=== PATIENT | female | born 1990 ===

== ENCOUNTER 2017-06-29 13:57 | Inpatient (IN) | payer OTHER ==
[2017-06-29] MEDS ORDERED: Sodium Chloride 0.9% 1,000 ML IV STA ×3 (15:16→20:24)
--- NOTE | 2017-06-29 16:20 | ED PDOC ---
Arrival/HPI - General Chief Complaint: Cough, Cold, Congestion Time Seen by Provider: 06/29/17 15:04 Historian: Patient - History of Present Illness Narrative History of Present Illness (Text): 06/29/17 16:16 27-year-old female presents today with a 2 week history of cough and a 2 day history of high fevers. Patient states she's been feeling sick for the past 2 weeks with cough. Patient states over the past 2 days she has developed high fever and has been feeling weak. Patient states that she has a body aches. States she took Tylenol for pain yesterday. Denies chest pain or shortness of breath. Patient states cough is occasionally dry and occasionally productive. Patient states she had episodes of nausea and vomiting yesterday. Denies dizziness. Denies back pain. No other complaints Time/Duration: > week (2 weeks) Symptom Onset: Gradual Symptom Course: Worsening Quality: Aching Severity Level: 4 Past Medical History - Provider Review Nursing Documentation Reviewed: Yes - Travel History Have you recently traveled outside [place] w/in the past 3 mons?: No - Infectious Disease Hx of Infectious Diseases: None - Tetanus Immunization Tetanus Immunization: Unknown - Reproductive Menopause: No - Past Medical History Past Medical History: No Previous - Psychiatric Hx Depression: No Hx Emotional Abuse: No Hx Physical Abuse: No Hx Substance Use: No - Past Surgical History Past Surgical History: No Previous - Surgical History Other/Comment: cardiac surgery 1 yrs old - Anesthesia Hx Anesthesia: Yes Hx Anesthesia Reactions: No - Suicidal Assessment Feels Threatened In Home Enviroment: No Family/Social History - Physician Review Nursing Documentation Reviewed: Yes Family/Social History: Unknown Family HX Smoking Status: Unknown If Ever Smoked Hx Alcohol Use: No Hx Substance Use: No Hx Substance Use Treatment: No Allergies/Home Meds Allergies/Adverse Reactions: Allergies No Known Allergies Allergy (Verified 06/12/14 13:16) Home Medications: Home Meds Medication Instructions Recorded Confirmed No Known Home Med [No Known Home 06/12/14 06/29/17 Med] Review of Systems - Review of Systems Constitutional: Fatigue, Fevers ENT: Sore Throat, Sinus Congestion Respiratory: Cough. absent: SOB Cardiovascular: absent: Chest Pain, Palpitations Gastrointestinal: Nausea, Vomiting. absent: Abdominal Pain, Constipation, Diarrhea Genitourinary Female: absent: Dysuria, Frequency Musculoskeletal: Other (bodyaches). absent: Arthralgias Skin: absent: Rash, Pruritis Neurological: absent: Headache, Dizziness Psychiatric: absent: Anxiety, Depression, Suicidal Ideation Physical Exam Vital Signs Reviewed: Yes Vital Signs Temp Pulse Resp BP Pulse Ox 06/29/17 21:26 70 19 88/54 L 98 06/29/17 20:12 69 19 94/63 L 97 06/29/17 18:11 68 20 92/52 L 99 06/29/17 17:24 100.6 F H 06/29/17 14:36 100.6 F H 100 H 18 90/58 L 98 Temperature: Febrile Blood Pressure: Hypotensive Pulse: Regular Respiratory Rate: Normal Appearance: Positive for: Well-Appearing, Non-Toxic, Comfortable Pain Distress: None Mental Status: Positive for: Alert and Oriented X 3 - Systems Exam Head: Present: Atraumatic Pupils: Present: PERRL Extroacular Muscles: Present: EOMI Conjunctiva: Present: Normal Ears: Present: Normal, NORMAL TM Mouth: Present: Moist Mucous Membranes, Normal Tounge. No: Drooling, Trismus Pharnyx: Present: Normal. No: ERYTHEMA, EXUDATE, TONSILS ENLARGED Nose (External): Present: Atraumatic Nose (Internal): Present: Clear Mucous Neck: Present: Normal Range of Motion, Trachea Midline. No: Meningeal Signs Respiratory/Chest: Present: Clear to Auscultation, Good Air Exchange. No: Respiratory Distress, Accessory Muscle Use Cardiovascular: Present: Tachycardic. No: Murmurs Abdomen: Present: Normal Bowel Sounds. No: Tenderness, Distention, Peritoneal Signs, Rebound, Guarding Back: Present: Normal Inspection. No: Midline Tenderness, Paraspinal Tenderness Upper Extremity: Present: Normal ROM Lower Extremity: Present: Normal ROM Neurological: Present: GCS=15, Speech Normal Skin: Present: Warm, Dry, Normal Color. No: Rashes Psychiatric: Present: Alert, Oriented x 3 Medical Decision Making ED Course and Treatment: 06/29/17 16:19 27-year-old female with two-week history of cough and flulike symptoms 2 days Febrile in the emergency room, slightly hypotensive; feeling fatigued. Patient given 1 L normal saline IV bolus Patient given Zofran for nausea Tylenol for pain/fever Chest x-ray: right upper lobe nodular densities, likely granulomas, Biapical pleural thickening. No focal consolidation Rapid flu:negative pts son with + flu test today. will start patient on tamiflu. Patient reassessment: pt still c/o generalized weakness; dry cough noted. pt remains hypotensive; 2L NS ordered. pt reassessment: pt with continued hypotension; c/o weakness. 3rd L NS iv bolus ordered. CBC; wnl CMP; k; 3.3 trop; wnl 40meq potassium given PO ekg; normal sinus rhythm at [address] depressions in 3 and aVF and T- wave inversions in V2 V3 and V4 After third liter of fluid patient still remains hypotensive with a blood pressure of 88/54. All results discussed in depth with the patient. Case was discussed in depth with Dr. Caldwell and medical director occupational health. We will admit the patient observational status for hypotension with abnormal EKG all aspects of this case were discussed the attending of record. Impression: Hypotension, abnormal EKG Admit observational status to telemetry - Lab Interpretations Lab Results: 06/29/17 21:50 06/29/17 21:50 Lab Results 06/29/17 21:50: pO2 71 H, VBG pH 7.33, VBG pCO2 41.0, VBG HCO3 21.6, VBG Total CO2 22.9, VBG O2 Sat (Calc) 97.0 H, VBG Base Excess -4.1 L, VBG Potassium 3.2 L , Sodium 138.0, Chloride 114.0 H, Glucose 79, Lactate 0.6 L, FiO2 21.0, Venous Blood Potassium 3.2 L 06/29/17 21:50: WBC 3.9 L, RBC 3.49 L, Hgb 10.6 L, Hct 32.6 L, MCV 93.4, MCH 30.4, MCHC 32.5, RDW 14.3, Plt Count 140, MPV 9.6, Gran % 57.5, Lymph % (Auto) 32.8, Turner % (Auto) 9.2 H, Eos % (Auto) 0.5 L, Baso % (Auto) 0.0, Gran # 2.24, Lymph # (Auto) 1.3, Turner # (Auto) 0.4, Eos # (Auto) 0.0, Baso # (Auto) 0.00 06/29/17 21:50: Sodium 136, Chloride 108 H, Potassium 3.3 L, Carbon Dioxide 22, Anion Gap 9 L, BUN 13, Creatinine 0.6 L, Est GFR ( Amer) > 60, Est GFR ( Non-Af Amer) > 60, Random Glucose 77, Calcium 8.2 L, Total Bilirubin 0.4, AST 17 , ALT 25, Alkaline Phosphatase 68, Lactate Dehydrogenase 317 L, Total Creatine Kinase 81, Troponin I < 0.01, Total Protein 5.9, Albumin 3.1, Globulin 2.8, Albumin/Globulin Ratio 1.1, Lipase 36 06/29/17 17:15: Influenza Typ A,B (EIA) Negative for flu a/b - RAD Interpretation Radiology Orders: 06/29/17 16:25 CHEST TWO VIEWS (PA/LAT) [RAD] Stat - Medication Orders Current Medication Orders: Acetaminophen (Tylenol 325mg Tab) 650 mg PO Q6H PRN PRN Reason: Fever >100.4 F Guaifenesin (Robitussin) 100 mg PO Q4H PRN PRN Reason: Cough Sodium Chloride (Sodium Chloride 0.9%) 1,000 mls @ 999 mls/hr IV .Q1H1M MOLLY Ceftriaxone Sodium (Rocephin 2 Gm Ivpb) 2 gm in 100 mls @ 100 mls/hr IVPB DAILY MOLLY PRN Reason: Protocol Azithromycin (Zithromax 500mg In Ns) 500 mg in 250 mls @ 167 mls/hr IVPB DAILY MOLLY PRN Reason: Protocol Sodium Chloride (Sodium Chloride 0.9%) 1,000 mls @ 80 mls/hr IV .[id number] MOLLY Levalbuterol HCl (Xopenex) 0.63 mg IH Q6H PRN PRN Reason: Shortness of Breath Pantoprazole Sodium (Protonix Ec Tab) 40 mg PO 0600 [facility] Discontinued Medications Acetaminophen (Tylenol 325mg Tab) 975 mg PO STAT STA Stop: 06/29/17 15:06 Last Admin: 06/29/17 17:24 Dose: 975 mg MAR Pain/Vitals Document 06/29/17 17:24 [email or web address] (Rec: 06/29/17 17:24 [email or web address] [id number]) Vitals Temperature (97.6 F-99.6 F) 100.6 F Temperature Source Oral Azithromycin (Zithromax) 500 mg PO STAT STA PRN Reason: Protocol Stop: 06/29/17 17:59 Last Admin: 06/29/17 18:10 Dose: 500 mg Sodium Chloride (Sodium Chloride 0.9%) 1,000 mls @ 999 mls/hr IV .Q1H1M STA Stop: 06/29/17 16:16 Last Admin: 06/29/17 17:24 Dose: 999 mls/hr eMAR Start Stop Document 06/29/17 17:24 [email or web address] (Rec: 06/29/17 17:[id number]- [id number]) Intravenous Solution Start Date 06/29/17 Start Time 17:24 End Date 06/29/17 Sodium Chloride (Sodium Chloride 0.9%) 1,000 mls @ 999 mls/hr IV .Q1H1M STA Stop: 06/29/17 19:42 Last Admin: 06/29/17 18:53 Dose: 999 mls/hr eMAR Start Stop Document 06/29/17 18:53 [email or web address] (Rec: 06/29/17 18:[id number]- [id number]) Intravenous Solution Start Date 06/29/17 Start Time 18:54 End Date 06/29/17 Sodium Chloride (Sodium Chloride 0.9%) 1,000 mls @ 999 mls/hr IV .Q1H1M STA Stop: 06/29/17 21:24 Last Admin: 06/29/17 20:57 Dose: 999 mls/hr eMAR Start Stop Document 06/29/17 20:57 [email or web address] (Rec: 06/29/17 20:[email or web address]- [id number]) Intravenous Solution Start Date 06/29/17 Start Time 20:57 End Date 06/29/17 Ondansetron HCl (Zofran Inj) 4 mg IVP STAT STA Stop: 06/29/17 15:17 Last Admin: 06/29/17 17:24 Dose: 4 mg IVP Administration Document 06/29/17 17:24 [email or web address] (Rec: 06/29/17 17:[email or web address]- [id number]) Charges for Administration # of IVP Administrations 1 Oseltamivir Phosphate (Tamiflu Cap) 75 mg PO STAT STA PRN Reason: Protocol Stop: 06/29/17 17:52 Last Admin: 06/29/17 18:09 Dose: 75 mg Potassium Chloride (K-Dur 20 Meq Er Tab) 40 meq PO STAT STA Stop: 06/29/17 22:26 Last Admin: 06/29/17 23:01 Dose: 40 meq Disposition/Present on Arrival - Present on Arrival Any Indicators Present on Arrival: No History of DVT/PE: No History of Uncontrolled Diabetes: No Urinary Catheter: No History of Decub. Ulcer: No History Surgical Site Infection Following: None - Disposition Have Diagnosis and Disposition been Completed?: Yes Diagnosis: Hypotension, Abnormal EKG Disposition: HOSPITALIZED Disposition Time: 23:00 Patient Plan: Observation, Telemetry Patient Problems: Current Active Problems Problem Status Onset Abnormal EKG Acute Hypotension Acute Condition: FAIR
--- NOTE | 2017-06-29 17:50 | RAD ---
HISTORY: cough/fever COMPARISON: None available. TECHNIQUE: Chest PA and lateral FINDINGS: LUNGS: Tiny right upper lobe nodular densities, likely granulomas. Biapical pleural thickening. No focal consolidation. Please note that chest x-ray has limited sensitivity for the detection of pulmonary masses. PLEURA: No significant pleural effusion identified. No definite pneumothorax . CARDIOVASCULAR: The cardiomediastinal silhouette appears within normal limits of size. OSSEOUS STRUCTURES: No acute osseous abnormality identified. VISUALIZED UPPER ABDOMEN: Unremarkable. OTHER FINDINGS: None. IMPRESSION: Tiny right upper lobe nodular densities, likely granulomas. Biapical pleural thickening.
[2017-06-29 22:05] LABS: EOS % 0.5 % (1.5-5.0); GRAN # 2.24 (1.4-6.5); GRAN % 57.5 % (50.0-68.0); HEMOGLOBIN 10.6 g/dL (12.0-16.0); LYMPH # 1.3 (1.2-3.4); LYMPH % 32.8 % (22.0-35.0); MEAN CELL VOLUME 93.4 fl (80.0-105.0); MEAN CORPUSCULAR HEMOGLOBIN 30.4 pg (25.0-35.0); MEAN CORPUSCULAR HGB CONC 32.5 g/dl (31.0-37.0); MEAN PLATELET VOLUME 9.6 fl (7.0-11.0); MONO # 0.4 (0.1-0.6); MONO % 9.2 % (1.0-6.0); RBC 3.49 10^6/uL (3.5-6.1); RED CELL DISTRIBUTION WIDTH 14.3 % (11.5-14.5); VENOUS BLOOD GAS BASE EXCESS -4.1 mmol/L (0.0-2.0); VENOUS BLOOD GAS PO2 71 mm/Hg (30-55); VENOUS BLOOD PH 7.33 (7.32-7.43); WHITE BLOOD COUNT 3.9 10^3/ul (4.5-11.0)
[2017-06-29 22:24] LABS: ALB/GLOB RATIO 1.1 (1.1-1.8); ALBUMIN 3.1 g/dL (3.0-4.8); ALT/SGPT 25 U/L (7-56); AST/SGOT 17 U/L (14-36); BLOOD UREA NITROGEN 13 mg/dL (7-21); CALCIUM 8.2 mg/dL (8.4-10.5); GFR AFRICAN-AMERICAN > 60; GFR NON-AFRICAN AMERICAN > 60; LIPASE 36 U/L (23-300)
[2017-06-29] MEDS ORDERED: Potassium Chloride 20 mEq ER Tab PO STA (22:25)
[2017-06-29 22:35] LABS: TROPONIN I < 0.01 ng/mL
--- NOTE | 2017-06-29 23:44 | CP.PCM.HP ---
<Sergio Barnard - Last Filed: 06/29/17 23:38> History of Present Illness - History of Present Illness History of Present Illness: 27 year old female with no significant past medical history presents with 2 week history of cough. Patient states her cough started two weeks ago and is productive with yellow sputum. She states she was around her and son who had similar symptoms. Yesterday they patient felt subjective fevers and also had two episodes on on bloody non bilious vomiting. Along with the cough she has also had headaches and sore throat, but no nasal congestion or runny nose. In addition, she states she had two episodes of diarrhea while waiting in the ED. She denies any chest pain, shortness of breath, nausea, abdominal pain, chills, body aches or any other complaints at this time. PMH: none significant PSH: cardiac surgery at age 1, unknown procedure Allergies: none Social: denies tobacco, alcohol, or illicit drug use Medications: none Family Hx: none significant Present on Admission - Present on Admission Any Indicators Present on Admission: No Review of Systems - Constitutional Constitutional: Fever, Headache. absent: Chills - EENT Eyes: absent: Change in Vision Ears: absent: Ear Pain Nose/Mouth/Throat: Sore Throat. absent: Nasal Congestion, Nasal Discharge - Cardiovascular Cardiovascular: absent: Chest Pain, Dyspnea - Respiratory Respiratory: Cough, Chest Congestion, Excessive Mucous Production. absent: Dyspnea - Gastrointestinal Gastrointestinal: Diarrhea, Vomiting. absent: Abdominal Pain, Nausea - Genitourinary Genitourinary: absent: Difficulty Urinating - Musculoskeletal Musculoskeletal: absent: Arthralgias - Neurological Neurological: absent: Dizziness, Headaches Past Patient History - Infectious Disease Hx of Infectious Diseases: None - Tetanus Immunizations Tetanus Immunization: Unknown - Past Social History Smoking Status: Unknown If Ever Smoked - PSYCHIATRIC Hx Depression: No Hx Emotional Abuse: No Hx Physical Abuse: No Hx Substance Use: No - SURGICAL HISTORY Other/Comment: cardiac surgery 1 yrs old - ANESTHESIA Hx Anesthesia: Yes Hx Anesthesia Reactions: No Meds Allergies/Adverse Reactions: Allergies Allergy/AdvReac Type Severity Reaction Status Date / Time No Known Allergies Allergy Verified 06/12/14 13:16 Physical Exam - Constitutional Appears: Non-toxic, No Acute Distress - Head Exam Head Exam: ATRAUMATIC, NORMAL INSPECTION, NORMOCEPHALIC - Eye Exam Eye Exam: EOMI, Normal appearance, PERRL - ENT Exam ENT Exam: Mucous Membranes Moist - Neck Exam Neck exam: Negative for: Lymphadenopathy, Tenderness - Respiratory Exam Respiratory Exam: NORMAL BREATHING PATTERN Additional comments: inspiratory wheezing in right upper lung - Cardiovascular Exam Cardiovascular Exam: REGULAR RHYTHM, +S1, +S2 - GI/Abdominal Exam GI & Abdominal Exam: Soft. absent: Tenderness - Extremities Exam Extremities exam: Positive for: pedal pulses present. Negative for: pedal edema - Neurological Exam Neurological exam: Alert, CN II-XII Intact, Oriented x3 Results - Vital Signs Recent Vital Signs: Last Vital Signs Temp 100.6 F H 06/29/17 17:24 Pulse 70 06/29/17 21:26 Resp 19 06/29/17 21:26 BP 88/54 L 06/29/17 21:26 Pulse Ox 98 06/29/17 21:26 - Labs Result Diagrams: 06/29/17 21:50 06/29/17 21:50 Labs: Laboratory Results - last 24 hr 06/29/17 06/29/17 06/29/17 17:15 21:50 21:50 WBC 3.9 L RBC 3.49 L Hgb 10.6 L Hct 32.6 L MCV 93.4 MCH 30.4 MCHC 32.5 RDW 14.3 Plt Count 140 MPV 9.6 Gran % 57.5 Lymph % (Auto) 32.8 Kimball % (Auto) 9.2 H Eos % (Auto) 0.5 L Baso % (Auto) 0.0 Gran # 2.24 Lymph # (Auto) 1.3 Kimball # (Auto) 0.4 Eos # (Auto) 0.0 Baso # (Auto) 0.00 pO2 VBG pH VBG pCO2 VBG HCO3 VBG Total CO2 VBG O2 Sat (Calc) VBG Base Excess VBG Potassium Sodium 136 Chloride 108 H Glucose Lactate FiO2 Potassium 3.3 L Carbon Dioxide 22 Anion Gap 9 L BUN 13 Creatinine 0.6 L Est GFR ( Amer) > 60 Est GFR (Non-Af Amer) > 60 Random Glucose 77 Calcium 8.2 L Total Bilirubin 0.4 AST 17 ALT 25 Alkaline Phosphatase 68 Lactate Dehydrogenase 317 L Total Creatine Kinase 81 Troponin I < 0.01 Total Protein 5.9 Albumin 3.1 Globulin 2.8 Albumin/Globulin Ratio 1.1 Lipase 36 Venous Blood Potassium Influenza Typ A,B (EIA) Negative for flu a/b 06/29/17 21:50 WBC RBC Hgb Hct MCV MCH MCHC RDW Plt Count MPV Gran % Lymph % (Auto) Kimball % (Auto) Eos % (Auto) Baso % (Auto) Gran # Lymph # (Auto) Kimball # (Auto) Eos # (Auto) Baso # (Auto) pO2 71 H VBG pH 7.33 VBG pCO2 41.0 VBG HCO3 21.6 VBG Total CO2 22.9 VBG O2 Sat (Calc) 97.0 H VBG Base Excess -4.1 L VBG Potassium 3.2 L Sodium 138.0 Chloride 114.0 H Glucose 79 Lactate 0.6 L FiO2 21.0 Potassium Carbon Dioxide Anion Gap BUN Creatinine Est GFR ( Amer) Est GFR (Non-Af Amer) Random Glucose Calcium Total Bilirubin AST ALT Alkaline Phosphatase Lactate Dehydrogenase Total Creatine Kinase Troponin I Total Protein Albumin Globulin Albumin/Globulin Ratio Lipase Venous Blood Potassium 3.2 L Influenza Typ A,B (EIA) Assessment & Plan - Assessment and Plan (Free Text) Assessment: 27 year old female with no significant past medical history presents with 2 week history of cough. Patient states her cough started two weeks ago and is productive with yellow sputum. Plan: 1. Cough with Fever -Chest xray: right upper lobe nodular densities, likely granulomas, Biapical pleural thickening. No focal consolidation -EKG, pending official read, T wave inversions -Rocephin -Azithromycin -Tylenol -Robitussin -xopenex -blood, urine, sputum cultures pending -rapid flu negative 2. Abnormal EKG with T wave inversions -EKG, pending official read, T wave inversions -Cardiology consulted, Becker, follow recs -Troponin negative initial, follow up x2 -repeat EKG in AM 3. Hypotension -88/54 BP -4 L NS given -NS @80 -continue to monitor 4. Hypokalemia -repleted -monitor via daily CBC 5. Diarrhea -Fluids -C diff toxin pending GI/DVT -protonix -SCD <Teetee Caldwell - Last Filed: 06/30/17 00:12> Results - Vital Signs Recent Vital Signs: Last Vital Signs Temp 100.6 F H 06/29/17 17:24 Pulse 70 06/29/17 21:26 Resp 19 01/31/18 21:26 BP 88/54 L 06/29/17 21:26 Pulse Ox 98 06/29/17 21:26 - Labs Result Diagrams: 06/29/17 21:50 06/29/17 21:50 Attending/Attestation - Attestation I have personally seen and examined this patient.: Yes I have fully participated in the care of the patient.: Yes I have reviewed all pertinent clinical information: Yes Notes (Text): 06/30/17 00:12 Patient was seen when she was in bed # 13 in the ER. Agree with history, physical examination,assessment and plan.
[2017-06-29] MEDS ORDERED: Levalbuterol 0.63 MG/3 ML Inhal Soln UD IH PRN (23:51)
[2017-06-30] MEDS: Sodium Chloride 0.9% 1,000 ML IV SCH ×4 (01:50→13:00)
[2017-06-30] MEDS: guaiFENesin 100 mg/5 ml Syrup UD PO PRN ×2 (02:02→23:14)
[2017-06-30 06:57] LABS: BASO # 0.02 K/mm3 (0.0-2.0); BASO % 0.5 % (0.0-3.0); EOS # 0.1 (0.0-0.7); GRAN # 2.18 (1.4-6.5); GRAN % 54.7 % (50.0-68.0); HEMOGLOBIN 10.8 g/dL (12.0-16.0); LYMPH # 1.3 (1.2-3.4); LYMPH % 33.3 % (22.0-35.0); MEAN CELL VOLUME 94.3 fl (80.0-105.0); MEAN CORPUSCULAR HEMOGLOBIN 29.3 pg (25.0-35.0); MEAN CORPUSCULAR HGB CONC 31.1 g/dl (31.0-37.0); MEAN PLATELET VOLUME 9.9 fl (7.0-11.0); MONO # 0.4 (0.1-0.6); MONO % 9.5 % (1.0-6.0); RBC 3.68 10^6/uL (3.5-6.1); RED CELL DISTRIBUTION WIDTH 14.4 % (11.5-14.5)
[2017-06-30] MEDS: Pantoprazole 40 mg EC Tab PO SCH (08:55)
[2017-06-30] MEDS: Azithromycin 500MG/NS 250ml 500 MG/250 ML BAG IVPB SCH (09:08)
[2017-06-30] MEDS ORDERED: cefTRIAXone 2 GM IN NS 2 GM/100 ML BAG IVPB SCH (10:00)
[2017-06-30 10:08] LABS: ALB/GLOB RATIO 1.1 (1.1-1.8); ALBUMIN 3.2 g/dL (3.0-4.8); ALT/SGPT 28 U/L (7-56); AST/SGOT 22 U/L (14-36); BLOOD UREA NITROGEN 10 mg/dL (7-21); CALCIUM 8.9 mg/dL (8.4-10.5); GFR AFRICAN-AMERICAN > 60; GFR NON-AFRICAN AMERICAN > 60
--- NOTE | 2017-06-30 10:31 | CT ---
PROCEDURE: CT Chest without contrast HISTORY: evaluate nodule COMPARISON: Chest x-ray 06/29/2017 TECHNIQUE: Contiguous axial images were obtained through the chest without intravenous contrast enhancement. Sagittal and coronal reconstructions were performed. Radiation dose (DLP): 197 mGy-cm. This CT exam was performed using one or more of the following dose reduction techniques: Automated exposure control, adjustment of the mA and/or kV according to patient size, and/or use of iterative reconstruction technique. FINDINGS: LUNGS: There is a small calcified granuloma in the right lung apex. No significant pulmonary nodule or mass. MEDIASTINUM: Unremarkable thoracic aorta. No aneurysm. Normal sized heart. Main pulmonary artery unremarkable. No vascular congestion. No lymphadenopathy. PLEURA: No pleural fluid. No pneumothorax. BONES: No fracture. No destructive lesion. UPPER ABDOMEN: Grossly unremarkable. OTHER FINDINGS: None. IMPRESSION: Small calcified granulomas right upper lobe. No significant pulmonary mass or nodule
--- NOTE | 2017-06-30 12:01 | CP.PCM.PN ---
<Jorge Alberto Hsieh - Last Filed: 06/30/17 19:45> Subjective - Date & Time of Evaluation Date of Evaluation: 06/30/17 Time of Evaluation: 10:55 - Subjective Subjective: Jorge Alberto Hsieh PGY1 IM Progress Note Patient was seen and examined at bedside in ED. Patient currently complaining of cough that is not productive, but denies any fevers/chills, chest pain, shortness of breath. She states that her and child were both diagnosed with flu. Patient states that she had a "hole in her heart" that was closed when she was young. Objective - Vital Signs/Intake and Output Vital Signs (last 24 hours): Temp Pulse Resp BP Pulse Ox 97.8 F 52 L 18 96/67 L 98 06/30/17 02:04 06/30/17 07:00 06/30/17 07:00 06/30/17 07:00 06/30/17 07:00 - Medications Medications: Current Medications Acetaminophen (Tylenol 325mg Tab) 650 mg PO Q6H PRN PRN Reason: Fever >100.4 F Guaifenesin (Robitussin) 100 mg PO Q4H PRN PRN Reason: Cough Last Admin: 06/30/17 02:02 Dose: 100 mg Sodium Chloride (Sodium Chloride 0.9%) 1,000 mls @ 999 mls/hr IV .Q1H1M [facility] Last Admin: 06/30/17 03:19 Dose: 999 mls/hr Ceftriaxone Sodium (Rocephin 2 Gm Ivpb) 2 gm in 100 mls @ 100 mls/hr IVPB DAILY [facility] PRN Reason: Protocol Last Admin: 06/30/17 10:57 Dose: 100 mls/hr Azithromycin (Zithromax 500mg In Ns) 500 mg in 250 mls @ 167 mls/hr IVPB DAILY [facility] PRN Reason: Protocol Last Admin: 06/30/17 09:08 Dose: 167 mls/hr Sodium Chloride (Sodium Chloride 0.9%) 1,000 mls @ 80 mls/hr IV .[id number] [facility] Last Admin: 06/30/17 01:50 Dose: Not Given Levalbuterol HCl (Xopenex) 0.63 mg IH Q6H PRN PRN Reason: Shortness of Breath Ondansetron HCl (Zofran Inj) 4 mg IVP Q4H PRN PRN Reason: Nausea/Vomiting Oseltamivir Phosphate (Tamiflu Cap) 75 mg PO BID [facility] PRN Reason: Protocol Stop: 07/05/17 11:53 Pantoprazole Sodium (Protonix Ec Tab) 40 mg PO 0600 [facility] Last Admin: 06/30/17 08:55 Dose: 40 mg - Labs Labs: 06/30/17 06:37 06/30/17 09:55 - Constitutional Appears: Well, Non-toxic, No Acute Distress - Head Exam Head Exam: NORMAL INSPECTION - Eye Exam Eye Exam: EOMI, Normal appearance, PERRL - ENT Exam ENT Exam: Mucous Membranes Moist - Neck Exam Neck Exam: Normal Inspection - Respiratory Exam Respiratory Exam: Clear to Ausculation Bilateral, NORMAL BREATHING PATTERN. absent: Rales, Rhonchi, Wheezes - Cardiovascular Exam Cardiovascular Exam: RRR, +S1, +S2 - GI/Abdominal Exam GI & Abdominal Exam: Soft, Normal Bowel Sounds. absent: Distended, Tenderness - Extremities Exam Extremities Exam: Normal Inspection - Back Exam Back Exam: NORMAL INSPECTION - Neurological Exam Neurological Exam: Alert, Awake, Oriented x3 - Psychiatric Exam Psychiatric exam: Normal Affect, Normal Mood - Skin Skin Exam: Normal Color, Warm Assessment and Plan - Assessment and Plan (Free Text) Assessment: 27 year old female with no significant past medical history presents with 2 week history of cough. Patient states her cough started two weeks ago and is productive with yellow sputum and associated with vomiting, sore throat and headache. Plan: 1. Cough with Fever - Chest xray: right upper lobe nodular densities, likely granulomas, Biapical pleural thickening. No focal consolidation - HRCT chest showed small calcified granulomas in right upper lobe - EKG, pending official read, T wave inversions - Azithromycin to cover for CAP despite low pneumonia severity - Tamiflu started given +hx in family despite negative flu test - Quantiferon gold ordered to r/o TB - Tylenol prn fevers - Robitussin prn cough - xopenex - blood, urine, sputum cultures pending 2. Abnormal EKG with T wave inversions - EKG, pending official read, T wave inversions - Cardiology consulted, recs appreciated - Troponin I negative x3 - repeat EKGs all consisent 3. Hypotension, similar to old readings - NS @80 - continue to monitor 4. Hypokalemia - repleted 5. Diarrhea - Fluids - C diff toxin pending 6. GI/DVT - protonix for GI ppx - SCDs for DVT ppx Patient was seen, examined and discussed with attending, Dr Kiersten Hsieh PGY1 Pager # [phone] <Isak Burch B - Last Filed: 07/02/17 16:37> Objective - Vital Signs/Intake and Output Vital Signs (last 24 hours): Temp Pulse Resp BP Pulse Ox 98.0 F 61 18 86/52 L 99 07/02/17 12:00 07/02/17 12:00 07/02/17 12:00 07/02/17 12:00 07/02/17 06:00 Intake and Output: 07/02/17 07/02/17 06:59 18:59 Intake Total 720 120 Balance 720 120 - Medications Medications: Current Medications Acetaminophen (Tylenol 325mg Tab) 650 mg PO Q6H PRN PRN Reason: Fever >100.4 F Guaifenesin (Robitussin) 100 mg PO Q4H PRN PRN Reason: Cough Last Admin: 06/30/17 23:14 Dose: 100 mg Azithromycin (Zithromax 500mg In Ns) 500 mg in 250 mls @ 167 mls/hr IVPB DAILY [facility] PRN Reason: Protocol Last Admin: 07/02/17 09:05 Dose: 167 mls/hr Sodium Chloride (Sodium Chloride 0.9%) 1,000 mls @ 125 mls/hr IV .Q8H [facility] Last Admin: 07/02/17 04:16 Dose: 125 mls/hr Levalbuterol HCl (Xopenex) 0.63 mg IH Q6H PRN PRN Reason: Shortness of Breath Ondansetron HCl (Zofran Inj) 4 mg IVP Q4H PRN PRN Reason: Nausea/Vomiting Oseltamivir Phosphate (Tamiflu Cap) 75 mg PO Q12 [facility] PRN Reason: Protocol Last Admin: 07/02/17 09:05 Dose: 75 mg Pantoprazole Sodium (Protonix Ec Tab) 40 mg PO 0600 [facility] Last Admin: 07/02/17 05:29 Dose: 40 mg - Labs Labs: 07/02/17 07:30 07/02/17 07:30 Attending/Attestation - Attestation I have personally seen and examined this patient.: Yes I have fully participated in the care of the patient.: Yes I have reviewed all pertinent clinical information, including history, physical exam and plan: Yes Notes (Text): I have seen and examined the patient at bedside. 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 Patients child and was diagnosed with flu recently. She was started on rocephin, zithro and tamiflu. HRCT scan was obtained for further evaluation which indicated small calcified granulomas in RUL. Patient did not travel recently outside of [place]. No known TB contacts. No incarceration. Will order quantiferon and sputum sample collection to rule out TB. Air droplet precuations started. Will consult ID. Cardio consult appreciated. Echo result pending. BP is on the lower side however patient denies any complaints. It looks like this BP is normal for her. Upon discharge patiwnt will follow up in [facility] clinic. Dr Isak Burch
--- NOTE | 2017-06-30 16:09 | CARD ---
APPROVED REPORT EKG Measurement Heart [id number] CT 160P17 [id number] <Conclusion> Normal sinus rhythm Abnormal QRS-T angle, consider primary T wave abnormality Abnormal ECG
--- NOTE | 2017-06-30 16:12 | CARD ---
APPROVED REPORT EKG Measurement Heart [id number] MD [id number] <Conclusion> Normal sinus rhythm Nonspecific T wave abnormality Prolonged QT Abnormal ECG
--- NOTE | 2017-06-30 16:15 | CARD ---
APPROVED REPORT EKG Measurement Heart [id number] DE 160P54 [id number] <Conclusion> Normal sinus rhythm T wave abnormality, consider inferior ischemia Prolonged QT Abnormal ECG
[2017-06-30 19:31] VITALS: BMI 24.7
[2017-06-30] MEDS ORDERED: Influenza Vaccine 60 mcg/0.5 mL SYR (4YR UP) IM ONE (19:31)
[2017-06-30] MEDS ORDERED: Pneumococcal 23-Valent Vaccine IM ONE (19:31)
--- NOTE | 2017-06-30 22:07 | CON ---
DATE: 06/30/2017 CARDIOLOGY CONSULTATION HISTORY OF PRESENT ILLNESS: The patient is a 27-year-old woman who presents with several days of upper respiratory infection. She was found to be relatively hypotensive. She received IV fluids. The patient's past medical history is notable for history of cardiac surgery for "hole in her heart" at the age of 1 in [place]. She denies shortness of breath. Denies chest pain. She is on no medications at home. Does not smoke. REVIEW OF SYSTEMS: A 14-point review of systems is reviewed in detail. No cardiac symptomatology noted. PHYSICAL EXAMINATION: VITAL SIGNS: Blood pressure 100/60. NECK: Negative JVD. LUNGS: Without rales. HEART: S1 and S2. EXTREMITIES: Without edema. EKG shows normal sinus rhythm with ST-T flattening. LABORATORY DATA: Reveal BUN and creatinine unremarkable. Troponin is negative x1. Hemoglobin is 10.8. IMPRESSION: 1. Upper respiratory infection. 2. Dehydration. 3. Mild hypotension which is now resolved. 4. Anemia. 5. History of probable atrial septal defect versus ventricular septal defect. Given these findings, we will continue IV hydration. We will obtain an echocardiogram to evaluate her history of heart surgery. Ventura Becker MD
--- NOTE | 2017-06-30 22:56 | CARD ---
APPROVED REPORT EXAM: Two-dimensional and M-mode echocardiogram with Doppler and color Doppler. INDICATION HX OF ASD VS VSD 2D DIMENSIONS Left Atrium (2D)3.8 (1.6-4.0cm)IVSd0.8 (0.7-1.1cm) LVDd4.5 (3.9-5.9cm)PWd0.7 (0.7-1.1cm) LVDs3.1 (2.5-4.0cm)FS (%) 32.1 % LVEF (%)60.4 (>50%) M-Mode DIMENSIONS Aortic Root2.60 (2.2-3.7cm)Aortic Cusp Exc.1.70 (1.5-2.0cm) Aortic Valve AoV Peak Dgrebqqo010.0cm/Shelley Peak GR.14mmHg Mitral Valve MV E Yhrgkqum495.0cm/sMV A Yqveakep38.8cm/sE/A ratio1.9 TDI E/Lateral E'0.0E/Medial E'0.0 Pulmonary Valve PV Peak Lusqduiq739.0cm/sPV Peak Grad.7mmHg Tricuspid Valve TR Peak Nhvgbnaq269sg/sRAP BSGJYANA81cfQbWH Peak Gr.29mmHg NOSY38bwCm LEFT VENTRICLE The left ventricle is normal size. There is normal left ventricular wall thickness. The left ventricular function is normal. The left ventricular ejection fraction is within the normal range. There is normal LV segmental wall motion. The left ventricular diastolic function is normal. RIGHT VENTRICLE The right ventricle is normal size. There is normal right ventricular wall thickness. The right ventricular systolic function is normal. ATRIA The left atrium size is normal. The right atrium size is normal. AORTIC VALVE The aortic valve is normal in structure. No aortic regurgitation is present. There is no aortic valvular stenosis. MITRAL VALVE The mitral valve is normal in structure. There is no mitral valve regurgitation noted. TRICUSPID VALVE There is mild pulmonary hypertension. GREAT VESSELS The aortic root is normal in size. <Conclusion> The left ventricle is normal size. There is normal left ventricular wall thickness. The left ventricular function is normal. The left ventricular ejection fraction is within the normal range. There is normal LV segmental wall motion. The left ventricular diastolic function is normal. There is mild pulmonary hypertension. Consider Right Ventricular Septal Patch for a VSD, No flow accross the IVS, a patch vegitation can not be ruled out A small PFO can not be ruled out, Consider BHAVNA
[2017-07-01 02:16] LABS: ALB/GLOB RATIO 1.1 (1.1-1.8); ALBUMIN 3.4 g/dL (3.0-4.8); ALT/SGPT 19 U/L (7-56); AST/SGOT 25 U/L (14-36); BLOOD UREA NITROGEN 11 mg/dL (7-21); CALCIUM 8.8 mg/dL (8.4-10.5); GFR AFRICAN-AMERICAN > 60; GFR NON-AFRICAN AMERICAN > 60
[2017-07-01] MEDS: Sodium Chloride 0.9% 1,000 ML IV SCH ×3 (06:51→20:24)
[2017-07-01] MEDS: Pantoprazole 40 mg EC Tab PO SCH (07:04)
[2017-07-01 07:16] LABS: EOS # 0.2 (0.0-0.7); EOS % 4.4 % (1.5-5.0); GRAN # 1.55 (1.4-6.5); GRAN % 37.9 % (50.0-68.0); HEMOGLOBIN 11.2 g/dL (12.0-16.0); LYMPH # 1.9 (1.2-3.4); LYMPH % 46.9 % (22.0-35.0); MEAN CELL VOLUME 93.4 fl (80.0-105.0); MEAN CORPUSCULAR HEMOGLOBIN 29.7 pg (25.0-35.0); MEAN CORPUSCULAR HGB CONC 31.8 g/dl (31.0-37.0); MEAN PLATELET VOLUME 10.1 fl (7.0-11.0); MONO # 0.4 (0.1-0.6); MONO % 10.8 % (1.0-6.0); RBC 3.77 10^6/uL (3.5-6.1); RED CELL DISTRIBUTION WIDTH 14.3 % (11.5-14.5); WHITE BLOOD COUNT 4.1 10^3/ul (4.5-11.0)
[2017-07-01] MEDS: Azithromycin 500MG/NS 250ml 500 MG/250 ML BAG IVPB SCH (11:59)
--- NOTE | 2017-07-01 12:31 | CP.PCM.PN ---
<JoriJorge Alberto - Last Filed: 07/01/17 15:01> Subjective - Date & Time of Evaluation Date of Evaluation: 07/01/17 Time of Evaluation: 10:30 - Subjective Subjective: Jorge Alberto Hsieh PGY1 IM Progress Note Patient was seen and examined at bedside in isolation room with negative pressure. Patient is complaining of dry cough but denies fevers/chills, n/v/d/, chills, night chills, weight loss. Patient states that she lived in [place] until 2006 and has not returned for a visit since then, and has no had any visitors recently. She states that she did receive vaccine for TB when she was a young. Objective - Vital Signs/Intake and Output Vital Signs (last 24 hours): Temp Pulse Resp BP Pulse Ox 97.5 F L 60 16 92/50 L 98 07/01/17 06:00 07/01/17 06:00 07/01/17 06:00 07/01/17 06:00 07/01/17 06:00 - Medications Medications: Current Medications Acetaminophen (Tylenol 325mg Tab) 650 mg PO Q6H PRN PRN Reason: Fever >100.4 F Guaifenesin (Robitussin) 100 mg PO Q4H PRN PRN Reason: Cough Last Admin: 06/30/17 23:14 Dose: 100 mg Sodium Chloride (Sodium Chloride 0.9%) 1,000 mls @ 999 mls/hr IV .Q1H1M [facility] Last Admin: 06/30/17 03:19 Dose: 999 mls/hr Azithromycin (Zithromax 500mg In Ns) 500 mg in 250 mls @ 167 mls/hr IVPB DAILY [facility] PRN Reason: Protocol Last Admin: 07/01/17 11:59 Dose: 167 mls/hr Sodium Chloride (Sodium Chloride 0.9%) 1,000 mls @ 80 mls/hr IV .[id number] [facility] Last Admin: 07/01/17 06:51 Dose: Not Given Levalbuterol HCl (Xopenex) 0.63 mg IH Q6H PRN PRN Reason: Shortness of Breath Ondansetron HCl (Zofran Inj) 4 mg IVP Q4H PRN PRN Reason: Nausea/Vomiting Oseltamivir Phosphate (Tamiflu Cap) 75 mg PO Q12 [facility] PRN Reason: Protocol Last Admin: 07/01/17 11:58 Dose: 75 mg Pantoprazole Sodium (Protonix Ec Tab) 40 mg PO 0600 [facility] Last Admin: 07/01/17 07:04 Dose: 40 mg - Additional Findings Additional findings: - Constitutional Appears: Well, Non-toxic, No Acute Distress - Head Exam Head Exam: NORMAL INSPECTION - Eye Exam Eye Exam: EOMI, Normal appearance, PERRL - ENT Exam ENT Exam: Mucous Membranes Moist - Neck Exam Neck Exam: Normal Inspection - Respiratory Exam Respiratory Exam: Rhonchi (RUL and RLL), NORMAL BREATHING PATTERN. absent: Rales, Rhonchi, Wheezes - Cardiovascular Exam Cardiovascular Exam: RRR, +S1, +S2 - GI/Abdominal Exam GI & Abdominal Exam: Soft, Normal Bowel Sounds. absent: Distended, Tenderness - Extremities Exam Extremities Exam: Normal Inspection - Back Exam Back Exam: NORMAL INSPECTION - Neurological Exam Neurological Exam: Alert, Awake, Oriented x3 - Psychiatric Exam Psychiatric exam: Normal Affect, Normal Mood - Skin Skin Exam: Normal Color, Warm Assessment and Plan - Assessment and Plan (Free Text) Assessment: 27 year old female with no significant past medical history presents with 2 week history of cough. Patient states her cough started two weeks ago and is productive with yellow sputum and associated with vomiting, sore throat and headache. Plan: 1. Cough with Fever, treating for flu but need to r/o TB - Chest xray: right upper lobe nodular densities, likely granulomas, Biapical pleural thickening. No focal consolidation - HRCT chest showed small calcified granulomas in right upper lobe - EKG, pending official read, T wave inversions - Azithromycin to cover for CAP despite low pneumonia severity - Tamiflu started given +hx in family despite negative flu test - Quantiferon gold ordered to r/o TB - AFB sputum cultures q8h x3 ordered - Tylenol prn fevers - Robitussin prn cough - xopenex - blood, urine, sputum cultures pending - ID consulted, rec 5d Tamiflu course and zithromax, while following up Quantiferon test, histoplasma Ag 2. Abnormal EKG with T wave inversions - EKG, pending official read, T wave inversions - Echo shows EF 60%, normal wall motion, mild pulm hypertension, VSD, possible PFO - Cardiology consulted, recs appreciated - Troponin I negative x3 - repeat EKGs all consistent 3. Hypotension, similar to old readings - NS @80 - continue to monitor 4. Diarrhea - Fluids - C diff toxin pending 5. GI/DVT - protonix for GI ppx - SCDs for DVT ppx Patient was seen, examined and discussed with attending, Dr Kiersten Hsieh PGY1 Pager # [phone] <Isak Burch B - Last Filed: 07/02/17 16:45> Objective - Vital Signs/Intake and Output Vital Signs (last 24 hours): Temp Pulse Resp BP Pulse Ox 98.0 F 61 18 86/52 L 99 07/02/17 12:00 07/02/17 12:00 07/02/17 12:00 07/02/17 12:00 07/02/17 06:00 Intake and Output: 07/02/17 07/02/17 06:59 18:59 Intake Total 720 120 Balance 720 120 - Medications Medications: Current Medications Acetaminophen (Tylenol 325mg Tab) 650 mg PO Q6H PRN PRN Reason: Fever >100.4 F Guaifenesin (Robitussin) 100 mg PO Q4H PRN PRN Reason: Cough Last Admin: 06/30/17 23:14 Dose: 100 mg Azithromycin (Zithromax 500mg In Ns) 500 mg in 250 mls @ 167 mls/hr IVPB DAILY [facility] PRN Reason: Protocol Last Admin: 07/02/17 09:05 Dose: 167 mls/hr Sodium Chloride (Sodium Chloride 0.9%) 1,000 mls @ 125 mls/hr IV .Q8H [facility] Last Admin: 07/02/17 04:16 Dose: 125 mls/hr Levalbuterol HCl (Xopenex) 0.63 mg IH Q6H PRN PRN Reason: Shortness of Breath Ondansetron HCl (Zofran Inj) 4 mg IVP Q4H PRN PRN Reason: Nausea/Vomiting Oseltamivir Phosphate (Tamiflu Cap) 75 mg PO Q12 [facility] PRN Reason: Protocol Last Admin: 07/02/17 09:05 Dose: 75 mg Pantoprazole Sodium (Protonix Ec Tab) 40 mg PO 0600 [facility] Last Admin: 07/02/17 05:29 Dose: 40 mg - Labs Labs: 07/02/17 07:30 07/02/17 07:30 Attending/Attestation - Attestation I have personally seen and examined this patient.: Yes I have fully participated in the care of the patient.: Yes I have reviewed all pertinent clinical information, including history, physical exam and plan: Yes Notes (Text): I have seen and examined the patient at bedside. Agree with the above note with the following additions/ exceptions: Briefly this is 27 year old female with history of congenital heart defect s/p repair who came for evaluation of fever, cough, phlegm production and found to have RUL nodular density and bi apical pleural thickening. Patients child and was diagnosed with flu recently. Continue zithro and tamiflu. HRCT scan was obtained for further evaluation which indicated small calcified granulomas in RUL. Patient did not travel recently outside of [place]. No known TB contacts. No incarceration. Quantiferon and sputum sample collection ordered to rule out TB. Air droplet precautions in place. ID consult appreciated. Hisptoplasma ag ordered. Cardio consult appreciated. Echo revealed suspected vegetation? Cardio recommended BHAVNA once TB is ruled out. BP is on the lower side however patient denies any complaints. It looks like this BP is normal for her. Upon discharge patient will follow up in [facility] clinic. Dr Isak Burch
--- NOTE | 2017-07-01 14:15 | CP.PCM.CON ---
History of Present Illness - History of Present Illness History of Present Illness: 27 year old female with no significant past medical history came in to [facility] [place] complaining of worsening cough for the last 2 days associated with fevers. She has been having cough for about 2 weeks which initially was dry then had clear phlegm, but in the last 2 days turned yellowish. She also developed fevers about 2 days ago. She states that her and children are also sick with runny nose and cough. She denies blood in the sputum, no hemoptysis, no weight loss, no sore throat, no rhinorrhea, has some muscle aches, no headache or dizziness, no abdominal pain, some loose bowel movement, no dysuria, no hematuria. She denies chronic cough lasting more than 3 weeks, no night sweats, no fevers prior to 2 days ago. She was born in [place] and moved [place] the [place] more than 10 years ago. As far as she knows, she has not been diagnosed with Tuberculosis. She has not done a tuberculin skin test and has not had a CXR prior to this admission. CXR was done which showed nodular opacities in the right upper lobe, and on CT chest, it showed probable calcified granuloma. Infectious diseases consult is requested to further evaluate and manage. Review of Systems - Review of Systems All systems: reviewed and no additional remarkable complaints except (as per HPI ) Past Patient History - Infectious Disease Hx of Infectious Diseases: None - Tetanus Immunizations Tetanus Immunization: Unknown - Past Social History Smoking Status: Never Smoked - CARDIAC Hx Cardiac Disorders: Yes (cardiac surgery when she was 1 years old.patent ductus arteriosus) - INTEGUMENTARY Hx Dermatological Problems: Yes (tattoos) - MUSCULOSKELETAL/RHEUMATOLOGICAL Hx Falls: No - PSYCHIATRIC Hx Depression: No Hx Emotional Abuse: No Hx Physical Abuse: No Hx Substance Use: No - SURGICAL HISTORY Other/Comment: cardiac surgery 1 yrs old - ANESTHESIA Hx Anesthesia: Yes Hx Anesthesia Reactions: No Meds Allergies/Adverse Reactions: Allergies Allergy/AdvReac Type Severity Reaction Status Date / Time No Known Allergies Allergy Verified 06/30/17 11:55 - Medications Medications: Current Medications Acetaminophen (Tylenol 325mg Tab) 650 mg PO Q6H PRN PRN Reason: Fever >100.4 F Guaifenesin (Robitussin) 100 mg PO Q4H PRN PRN Reason: Cough Last Admin: 06/30/17 23:14 Dose: 100 mg Sodium Chloride (Sodium Chloride 0.9%) 1,000 mls @ 999 mls/hr IV .Q1H1M [facility] Last Admin: 06/30/17 03:19 Dose: 999 mls/hr Azithromycin (Zithromax 500mg In Ns) 500 mg in 250 mls @ 167 mls/hr IVPB DAILY [facility] PRN Reason: Protocol Last Admin: 07/01/17 11:59 Dose: 167 mls/hr Sodium Chloride (Sodium Chloride 0.9%) 1,000 mls @ 80 mls/hr IV .[id number] [facility] Last Admin: 07/01/17 06:51 Dose: Not Given Levalbuterol HCl (Xopenex) 0.63 mg IH Q6H PRN PRN Reason: Shortness of Breath Ondansetron HCl (Zofran Inj) 4 mg IVP Q4H PRN PRN Reason: Nausea/Vomiting Oseltamivir Phosphate (Tamiflu Cap) 75 mg PO Q12 [facility] PRN Reason: Protocol Last Admin: 07/01/17 11:58 Dose: 75 mg Pantoprazole Sodium (Protonix Ec Tab) 40 mg PO 0600 [facility] Last Admin: 07/01/17 07:04 Dose: 40 mg Physical Exam - Constitutional Appears: Non-toxic, No Acute Distress - Head Exam Head Exam: NORMAL INSPECTION - ENT Exam ENT Exam: Mucous Membranes Moist - Neck Exam Neck exam: Negative for: Lymphadenopathy, Meningismus - Respiratory Exam Respiratory Exam: absent: Rales (few) - Cardiovascular Exam Cardiovascular Exam: +S1, +S2 - GI/Abdominal Exam GI & Abdominal Exam: Soft. absent: Tenderness Results - Vital Signs Recent Vital Signs: Last Vital Signs Temp 98.1 F 07/01/17 12:00 Pulse 61 07/01/17 12:00 Resp 18 07/01/17 12:00 BP 111/60 07/01/17 12:00 Pulse Ox 98 07/01/17 06:00 - Labs Result Diagrams: 07/01/17 06:45 07/01/17 01:10 Assessment & Plan - Assessment and Plan (Free Text) Plan: Assessment systemic inflammatory response syndrome, R/O systemic viral illness with Influenza as well as acute bronchitis nodular lesions on right upper lobe, probably calcified granuloma, R/O TB Plan Continue Tamiflu to complete a 5 day course; patient has been given a dose of Rocephin and will continue Zithromax pending blood cx, sputum cx, procalcitonin Follow up Quantiferon TB test - calcified granuloma is characteristic of old disease, and we are looking more whether this is from TB or not - will also get Histoplasma Ag; sputum AFB has been ordered and will follow up will monitor clinically
--- NOTE | 2017-07-01 15:19 | PN ---
DATE: 07/01/2017 CARDIOLOGY FOLLOWUP SUBJECTIVE: The patient is in isolation to rule out tuberculosis given granulomas in the apices. PHYSICAL EXAMINATION: VITAL SIGNS: Blood pressure 92/50, heart rates in the 60s. NECK: Negative JVD. Lungs: Without rales. HEART: With S1, S2. EXTREMITIES: Without edema. LABORATORY DATA: Hemoglobin is 11.2. Troponins are negative. Echocardiogram report suggests either a patch VSD versus small PFO. BHAVNA is recommended. IMPRESSION: 1. Status post ventriculoseptal defect. 2. Rule out tuberculosis. 3. Possible patent foramen ovale. I have discussed with the patient. We will consider BHAVNA if the patient is agreeable. Ventura Becker MD
[2017-07-02] MEDS: Sodium Chloride 0.9% 1,000 ML IV SCH ×2 (04:16→21:24)
[2017-07-02] MEDS: Pantoprazole 40 mg EC Tab PO SCH (05:29)
[2017-07-02 08:37] LABS: BASO # 0.01 K/mm3 (0.0-2.0); BASO % 0.3 % (0.0-3.0); EOS # 0.1 (0.0-0.7); EOS % 3.5 % (1.5-5.0); GRAN # 1.26 (1.4-6.5); GRAN % 34.2 % (50.0-68.0); HEMOGLOBIN 11.9 g/dL (12.0-16.0); LYMPH # 1.8 (1.2-3.4); LYMPH % 48.4 % (22.0-35.0); MEAN CELL VOLUME 93.7 fl (80.0-105.0); MEAN CORPUSCULAR HEMOGLOBIN 30.1 pg (25.0-35.0); MEAN CORPUSCULAR HGB CONC 32.1 g/dl (31.0-37.0); MEAN PLATELET VOLUME 10.4 fl (7.0-11.0); MONO # 0.5 (0.1-0.6); MONO % 13.6 % (1.0-6.0); RBC 3.96 10^6/uL (3.5-6.1); RED CELL DISTRIBUTION WIDTH 14.1 % (11.5-14.5); WHITE BLOOD COUNT 3.7 10^3/ul (4.5-11.0)
[2017-07-02] MEDS: Azithromycin 500MG/NS 250ml 500 MG/250 ML BAG IVPB SCH (09:05)
[2017-07-02 09:36] LABS: ALB/GLOB RATIO 1.1 (1.1-1.8); ALBUMIN 3.5 g/dL (3.0-4.8); ALT/SGPT 26 U/L (7-56); AST/SGOT 28 U/L (14-36); BLOOD UREA NITROGEN 8 mg/dL (7-21); CALCIUM 9.3 mg/dL (8.4-10.5); GFR AFRICAN-AMERICAN > 60; GFR NON-AFRICAN AMERICAN > 60
--- NOTE | 2017-07-02 12:32 | CP.PCM.PN ---
<Devonte Simonlouie - Last Filed: 07/02/17 16:58> Subjective - Date & Time of Evaluation Date of Evaluation: 07/02/17 Time of Evaluation: 07:30 - Subjective Subjective: Barby Simon DO PGY1 - IM Progress Note Patient seen and examined at bedside. No acute events overnight. Patient reports improvement overall, but still has a wet, nonproductive cough. She denies any chest pain, palpitations, shortness of breath, fever, chills, nausea , vomiting, diarrhea, constipation, abdominal pain, hemoptysis, hematemesis, night sweats. Objective - Vital Signs/Intake and Output Vital Signs (last 24 hours): Temp Pulse Resp BP Pulse Ox 97.7 F 54 L 19 79/43 L 99 07/02/17 06:00 07/02/17 10:00 07/02/17 06:00 07/02/17 06:00 07/02/17 06:00 Intake and Output: 07/02/17 07/02/17 06:59 18:59 Intake Total 720 120 Balance 720 120 - Medications Medications: Current Medications Acetaminophen (Tylenol 325mg Tab) 650 mg PO Q6H PRN PRN Reason: Fever >100.4 F Guaifenesin (Robitussin) 100 mg PO Q4H PRN PRN Reason: Cough Last Admin: 06/30/17 23:14 Dose: 100 mg Azithromycin (Zithromax 500mg In Ns) 500 mg in 250 mls @ 167 mls/hr IVPB DAILY [facility] PRN Reason: Protocol Last Admin: 07/02/17 09:05 Dose: 167 mls/hr Sodium Chloride (Sodium Chloride 0.9%) 1,000 mls @ 125 mls/hr IV .Q8H [facility] Last Admin: 07/02/17 04:16 Dose: 125 mls/hr Levalbuterol HCl (Xopenex) 0.63 mg IH Q6H PRN PRN Reason: Shortness of Breath Ondansetron HCl (Zofran Inj) 4 mg IVP Q4H PRN PRN Reason: Nausea/Vomiting Oseltamivir Phosphate (Tamiflu Cap) 75 mg PO Q12 [facility] PRN Reason: Protocol Last Admin: 07/02/17 09:05 Dose: 75 mg Pantoprazole Sodium (Protonix Ec Tab) 40 mg PO 0600 [facility] Last Admin: 07/02/17 05:29 Dose: 40 mg - Labs Labs: 07/02/17 07:30 07/02/17 07:30 - Constitutional Appears: Non-toxic, No Acute Distress - Head Exam Head Exam: ATRAUMATIC, NORMOCEPHALIC - Eye Exam Eye Exam: EOMI, Normal appearance, PERRL - ENT Exam ENT Exam: Mucous Membranes Moist - Neck Exam Neck Exam: Normal Inspection - Respiratory Exam Respiratory Exam: Clear to Ausculation Bilateral, NORMAL BREATHING PATTERN - Cardiovascular Exam Cardiovascular Exam: RRR, +S1, +S2 - GI/Abdominal Exam GI & Abdominal Exam: Soft, Normal Bowel Sounds. absent: Tenderness - Extremities Exam Extremities Exam: absent: Calf Tenderness, Pedal Edema - Neurological Exam Neurological Exam: Alert, Awake, Oriented x3 - Psychiatric Exam Psychiatric exam: Normal Affect, Normal Mood - Skin Skin Exam: Dry, Intact, Normal Color Assessment and Plan - Assessment and Plan (Free Text) Assessment: 27 year old female with no significant past medical history presents with 2 week history of cough. Patient states her cough started two weeks ago and is productive with yellow sputum and associated with vomiting, sore throat and headache. Plan: 1. Cough with Fever, treating for flu but need to r/o TB - Chest xray: right upper lobe nodular densities, likely granulomas, biapical pleural thickening. No focal consolidation - HRCT chest showed small calcified granulomas in right upper lobe - Continue Azithromycin to cover for CAP despite low pneumonia severity - Continue Tamiflu for 5 days (started 06/30) - Quantiferon gold ordered to r/o TB; pending - AFB sputum cultures q8h x3 ordered; pending - Tylenol prn fevers - Robitussin prn cough - Blood culture negative x24 hours - Urine and sputum cultures pending - Procal pending; Histoplasma Ag pending; per ID - ID on consult; appreciate recs 2. Abnormal EKG with T wave inversions - Repeat EKG unremarkable, and unchanged - Troponins negative; patient denies chest pain - Cardiology consulted, recs appreciated 3. History of VSD s/p repair - Patient endorses history of "hole in heart" that was repaired with a patch in childhood - Echo shows EF 60%, normal wall motion, mild pulm hypertension, possible VSD with patch, possible PFO; no vegetations - Per cardio, consider BHAVNA if patient is agreeable - Cardio on consult; appreciate recs 4. Hypotension, similar to old readings - Patient is at baseline; asymptomatic - Continue NS@80 - continue to monitor 5. Diarrhea - Patient no longer complaining of diarrhea - Continue IVF 6. GI/DVT - protonix for GI ppx - SCDs for DVT ppx Patient was seen, examined and discussed with attending, Dr Burch <Isak Burch - Last Filed: 07/02/17 18:17> Objective - Vital Signs/Intake and Output Vital Signs (last 24 hours): Temp Pulse Resp BP Pulse Ox 97.4 F L 58 L 19 88/51 L 99 07/02/17 18:00 07/02/17 18:00 07/02/17 18:00 07/02/17 18:00 07/02/17 06:00 Intake and Output: 07/02/17 07/02/17 06:59 18:59 Intake Total 720 120 Balance 720 120 - Medications Medications: Current Medications Acetaminophen (Tylenol 325mg Tab) 650 mg PO Q6H PRN PRN Reason: Fever >100.4 F Guaifenesin (Robitussin) 100 mg PO Q4H PRN PRN Reason: Cough Last Admin: 06/30/17 23:14 Dose: 100 mg Azithromycin (Zithromax 500mg In Ns) 500 mg in 250 mls @ 167 mls/hr IVPB DAILY [facility] PRN Reason: Protocol Last Admin: 07/02/17 09:05 Dose: 167 mls/hr Sodium Chloride (Sodium Chloride 0.9%) 1,000 mls @ 125 mls/hr IV .Q8H [facility] Last Admin: 07/02/17 04:16 Dose: 125 mls/hr Levalbuterol HCl (Xopenex) 0.63 mg IH Q6H PRN PRN Reason: Shortness of Breath Ondansetron HCl (Zofran Inj) 4 mg IVP Q4H PRN PRN Reason: Nausea/Vomiting Oseltamivir Phosphate (Tamiflu Cap) 75 mg PO Q12 [facility] PRN Reason: Protocol Last Admin: 07/02/17 09:05 Dose: 75 mg Pantoprazole Sodium (Protonix Ec Tab) 40 mg PO 0600 [facility] Last Admin: 07/02/17 05:29 Dose: 40 mg - Labs Labs: 07/02/17 07:30 07/02/17 07:30 Attending/Attestation - Attestation I have personally seen and examined this patient.: Yes I have fully participated in the care of the patient.: Yes I have reviewed all pertinent clinical information, including history, physical exam and plan: Yes Notes (Text): I have seen and examined the patient at bedside. Agree with the above note with the following additions/ exceptions: Briefly this is 27 year old female with history of congenital heart defect s/p repair who came for evaluation of fever, cough, phlegm production and found to have RUL nodular density and bi apical pleural thickening. Patients child and was diagnosed with flu recently. Continue zithro and tamiflu. HRCT scan was obtained for further evaluation which indicated small calcified granulomas in RUL. Patient did not travel recently outside of [place]. No known TB contacts. No incarceration. Quantiferon and sputum sample collection ordered to rule out TB. Air droplet precautions in place. ID consult appreciated. Hisptoplasma ag ordered. Cardio consult appreciated. Echo revealed suspected vegetation? Cardio recommended BHAVNA once TB is ruled out. Will discuss with Dr Becker on Tuesday. BP is on the lower side however patient denies any complaints. It looks like this BP is normal for her. Upon discharge patient will follow up in [facility] clinic. Dr Isak Burch
[2017-07-02] MEDS: guaiFENesin 100 mg/5 ml Syrup UD PO PRN (18:39)
--- NOTE | 2017-07-03 02:21 | PN ---
DATE: 07/02/2017 SUBJECTIVE: The patient is seen early this morning, in no acute distress. PHYSICAL EXAMINATION VITAL SIGNS: Temperature is 98, blood pressure is 86/50, respiratory rate of 18. HEENT: Unremarkable. NECK: Supple. LUNGS: Decreased breath sounds. HEART: Normal S1 and S2. ABDOMEN: Soft. LABORATORY DATA: Reveals the patient's white count is 3.7, hemoglobin of 11, platelets of 196. Chemistries are noted. Procalcitonin is 0.05. Influenza is negative. Microbiology reveals the patient's blood cultures have no growth, urine cultures have no growth and the patient's sputum has no acid-fast seen in the Gram stain, AFB stain. Review of orders reveal the patient to be on Tamiflu and azithromycin IV daily. Dr. Hassan's progress note is reviewed. ASSESSMENT AND PLAN: A 27-year-old female with systemic inflammatory response syndrome, nodular lesion in the upper lobe, calcified granuloma, on Tamiflu, Zithromax. QuantiFERON is pending. Acid-Fast Bacilli smear is negative. She did have a human immunodeficiency virus test. We will follow closely with you. We will check on the QuantiFERON. Jeffrey Newsome MD
[2017-07-03] MEDS: Sodium Chloride 0.9% 1,000 ML IV SCH ×3 (04:59→23:53)
[2017-07-03] MEDS: Pantoprazole 40 mg EC Tab PO SCH (05:00)
[2017-07-03 08:55] LABS: BASO # 0.02 K/mm3 (0.0-2.0); BASO % 0.4 % (0.0-3.0); EOS # 0.1 (0.0-0.7); EOS % 2.7 % (1.5-5.0); GRAN # 1.85 (1.4-6.5); GRAN % 38.8 % (50.0-68.0); HEMOGLOBIN 11.9 g/dL (12.0-16.0); LYMPH # 2.4 (1.2-3.4); LYMPH % 49.7 % (22.0-35.0); MEAN CELL VOLUME 92.9 fl (80.0-105.0); MEAN CORPUSCULAR HEMOGLOBIN 30.1 pg (25.0-35.0); MEAN CORPUSCULAR HGB CONC 32.4 g/dl (31.0-37.0); MEAN PLATELET VOLUME 9.9 fl (7.0-11.0); MONO # 0.4 (0.1-0.6); MONO % 8.4 % (1.0-6.0); RBC 3.95 10^6/uL (3.5-6.1); RED CELL DISTRIBUTION WIDTH 13.6 % (11.5-14.5); WHITE BLOOD COUNT 4.8 10^3/ul (4.5-11.0)
[2017-07-03 08:59] LABS: ALB/GLOB RATIO 1.1 (1.1-1.8); ALBUMIN 3.8 g/dL (3.0-4.8); ALT/SGPT 41 U/L (7-56); AST/SGOT 33 U/L (14-36); BLOOD UREA NITROGEN 8 mg/dL (7-21); CALCIUM 9.6 mg/dL (8.4-10.5); GFR AFRICAN-AMERICAN > 60; GFR NON-AFRICAN AMERICAN > 60
[2017-07-03] MEDS: guaiFENesin 100 mg/5 ml Syrup UD PO PRN ×2 (09:26→15:30)
--- NOTE | 2017-07-03 10:31 | PN ---
DATE: 07/03/2017 SUBJECTIVE: The patient is in bed, in no acute distress. PHYSICAL EXAMINATION: Temperature is 98, blood pressure is 98/50, respiratory rate of 20, heart rate of 52. HEENT: Examination of HEENT is unremarkable. NECK: Supple. LUNGS: Have decreased breath sounds. HEART: Normal S1 and S2. ABDOMEN: Soft, nontender. LABORATORY DATA: Laboratory examination reveals a white count of 3.7, hemoglobin of 11, platelets of 196. Chemistries reveal a BUN of 8, creatinine of 0.6 and procalcitonin is less than 0.05. Serology is noted. Microbiology reveals the mycobacterium. AFB is negative. CAT scan is reviewed. ASSESSMENT AND PLAN: A 27-year-old [place]-born female, admitted with systemic inflammatory response syndrome with calcified granuloma. May complete with p.o. Zithromax. If the QuantiFERON is positive, the patient would need INH latent therapy. With the presence of a calcified granuloma and a positive QuantiFERON, the patient needs to be on INH. The patient does not have active tuberculosis. We will discontinue the isolation and complete with p.o. Zithromax for 5 to 7 days and 5 days of Tamiflu. Waiting for the QuantiFERON. If the QuantiFERON is positive, will need INH therapy, INH alone. HIV testing also pending. Jeffrey Newsome MD
--- NOTE | 2017-07-03 14:54 | CP.PCM.PN ---
Subjective - Date & Time of Evaluation Date of Evaluation: 07/03/17 Time of Evaluation: 07:30 - Subjective Subjective: Palxochitl Alfred DO PGY1 - IM Progress Note Patient seen and examined at bedside. No acute events overnight. Patient has been taken off airborne precautions by ID. She reports improvement in her cough. She denies chest pain or shortness of breath, abdominal pain, nausea, vomiting, diarrhea, constipation, abdominal pain, fever, chills, hemoptysis, night sweats. Objective - Vital Signs/Intake and Output Vital Signs (last 24 hours): Temp Pulse Resp BP Pulse Ox 98.5 F 57 L 18 87/52 L 96 07/03/17 05:40 07/03/17 10:00 07/03/17 05:40 07/03/17 05:40 07/03/17 05:40 Intake and Output: 07/03/17 07/03/17 06:59 18:59 Intake Total 1365 Balance 1365 - Medications Medications: Current Medications Acetaminophen (Tylenol 325mg Tab) 650 mg PO Q6H PRN PRN Reason: Fever >100.4 F Azithromycin (Zithromax) 500 mg PO DAILY [facility] PRN Reason: Protocol Last Admin: 07/03/17 09:28 Dose: 500 mg Guaifenesin (Robitussin) 100 mg PO Q4H PRN PRN Reason: Cough Last Admin: 07/03/17 09:26 Dose: 100 mg Sodium Chloride (Sodium Chloride 0.9%) 1,000 mls @ 125 mls/hr IV .Q8H [facility] Last Admin: 07/03/17 09:28 Dose: 125 mls/hr Levalbuterol HCl (Xopenex) 0.63 mg IH Q6H PRN PRN Reason: Shortness of Breath Ondansetron HCl (Zofran Inj) 4 mg IVP Q4H PRN PRN Reason: Nausea/Vomiting Oseltamivir Phosphate (Tamiflu Cap) 75 mg PO Q12 [facility] PRN Reason: Protocol Last Admin: 07/03/17 09:28 Dose: 75 mg Pantoprazole Sodium (Protonix Ec Tab) 40 mg PO 0600 [facility] Last Admin: 07/03/17 05:00 Dose: 40 mg - Labs Labs: 07/03/17 08:20 07/03/17 08:20 - Constitutional Appears: Non-toxic, No Acute Distress - Head Exam Head Exam: NORMAL INSPECTION - Eye Exam Eye Exam: EOMI, Normal appearance, PERRL - ENT Exam ENT Exam: Mucous Membranes Moist - Neck Exam Neck Exam: Normal Inspection - Respiratory Exam Respiratory Exam: Clear to Ausculation Bilateral, NORMAL BREATHING PATTERN Additional comments: Wet cough noted - Cardiovascular Exam Cardiovascular Exam: RRR, +S1, +S2 - GI/Abdominal Exam GI & Abdominal Exam: Soft, Normal Bowel Sounds. absent: Tenderness - Extremities Exam Extremities Exam: absent: Calf Tenderness, Pedal Edema - Neurological Exam Neurological Exam: Alert, Awake, Oriented x3 - Psychiatric Exam Psychiatric exam: Normal Affect, Normal Mood - Skin Skin Exam: Dry, Intact, Normal Color Assessment and Plan - Assessment and Plan (Free Text) Assessment: 27 year old female with no significant past medical history presents with 2 week history of cough. Patient states her cough started two weeks ago and is productive with yellow sputum and associated with vomiting, sore throat and headache. Plan: 1. Cough with Fever, treating for flu but need to r/o TB - Chest xray: right upper lobe nodular densities, likely granulomas, biapical pleural thickening. No focal consolidation - HRCT chest showed small calcified granulomas in right upper lobe - Continue Azithromycin to cover for CAP despite low pneumonia severity - Continue Tamiflu for 5 days (started 06/30) - Quantiferon gold ordered to r/o TB; pending - AFB sputum cultures q8h x3 ordered; first one negative; x2 pending - Tylenol prn fevers - Robitussin prn cough - Blood culture negative x3 days - Urine culture negative - Procal low; Histoplasma Ag pending; per ID - ID on consult; appreciate recs 2. History of VSD s/p repair - Patient endorses history of "hole in heart" that was repaired with a patch in childhood - Echo shows EF 60%, normal wall motion, mild pulm hypertension, possible VSD with patch, possible PFO; no vegetations - Per cardio, consider BHAVNA if patient is agreeable - Cardio on consult; appreciate recs 3. Hypotension, similar to old readings - Patient is at baseline; asymptomatic - Continue NS@80 - Continue to monitor 4. Diarrhea - Resolved - Continue IVF 5. GI/DVT - protonix for GI ppx - SCDs for DVT ppx Patient was seen, examined and discussed with attending, Dr Burch
[2017-07-04] MEDS: Sodium Chloride 0.9% 1,000 ML IV SCH ×3 (00:35→16:56)
[2017-07-04] MEDS: Pantoprazole 40 mg EC Tab PO SCH (05:05)
[2017-07-04 06:46] LABS: BASO # 0.01 K/mm3 (0.0-2.0); BASO % 0.2 % (0.0-3.0); EOS # 0.1 (0.0-0.7); EOS % 2.5 % (1.5-5.0); GRAN # 2.27 (1.4-6.5); GRAN % 40.9 % (50.0-68.0); HEMOGLOBIN 11.8 g/dL (12.0-16.0); LYMPH # 2.7 (1.2-3.4); LYMPH % 48.7 % (22.0-35.0); MEAN CELL VOLUME 92.4 fl (80.0-105.0); MEAN CORPUSCULAR HGB CONC 32.5 g/dl (31.0-37.0); MONO # 0.4 (0.1-0.6); MONO % 7.7 % (1.0-6.0); RBC 3.93 10^6/uL (3.5-6.1); RED CELL DISTRIBUTION WIDTH 13.5 % (11.5-14.5); WHITE BLOOD COUNT 5.6 10^3/ul (4.5-11.0)
[2017-07-04 07:13] LABS: ALB/GLOB RATIO 1.1 (1.1-1.8); ALBUMIN 3.6 g/dL (3.0-4.8); ALT/SGPT 37 U/L (7-56); AST/SGOT 27 U/L (14-36); BLOOD UREA NITROGEN 11 mg/dL (7-21); CALCIUM 9.4 mg/dL (8.4-10.5); GFR AFRICAN-AMERICAN > 60; GFR NON-AFRICAN AMERICAN > 60
--- NOTE | 2017-07-04 08:59 | CP.PCM.PN ---
<JoriJorge Alberto - Last Filed: 07/04/17 15:49> Subjective - Date & Time of Evaluation Date of Evaluation: 07/04/17 Time of Evaluation: 08:59 - Subjective Subjective: Jorge Alberto Hsieh PGY1 IM Progress Note Patient was seen and examined at bedside. Denies any acute overnight events. Denies any fevers/chills, shortness of breath, chest pain, abdominal pain, hemoptysis or any urinary/bowel habit changes. Cough has improved. Objective - Vital Signs/Intake and Output Vital Signs (last 24 hours): Temp Pulse Resp BP Pulse Ox 98.8 F 55 L 20 77/40 L 100 07/04/17 05:42 07/04/17 05:42 07/04/17 05:42 07/04/17 05:42 07/04/17 05:42 Intake and Output: 07/04/17 07/04/17 06:59 18:59 Intake Total 375 Balance 375 - Medications Medications: Current Medications Acetaminophen (Tylenol 325mg Tab) 650 mg PO Q6H PRN PRN Reason: Fever >100.4 F Azithromycin (Zithromax) 500 mg PO DAILY [facility] PRN Reason: Protocol Last Admin: 07/03/17 09:28 Dose: 500 mg Guaifenesin (Robitussin) 100 mg PO Q4H PRN PRN Reason: Cough Last Admin: 07/03/17 15:30 Dose: 100 mg Sodium Chloride (Sodium Chloride 0.9%) 1,000 mls @ 100 mls/hr IV .Q10H [facility] Levalbuterol HCl (Xopenex) 0.63 mg IH Q6H PRN PRN Reason: Shortness of Breath Ondansetron HCl (Zofran Inj) 4 mg IVP Q4H PRN PRN Reason: Nausea/Vomiting Oseltamivir Phosphate (Tamiflu Cap) 75 mg PO Q12 [facility] PRN Reason: Protocol Last Admin: 07/03/17 21:35 Dose: 75 mg Pantoprazole Sodium (Protonix Ec Tab) 40 mg PO 0600 [facility] Last Admin: 07/04/17 05:05 Dose: 40 mg - Labs Labs: 07/04/17 06:00 07/04/17 06:00 - Additional Findings Additional findings: - Constitutional Appears: Well, Non-toxic, No Acute Distress - Head Exam Head Exam: NORMAL INSPECTION - Eye Exam Eye Exam: EOMI, Normal appearance, PERRL - ENT Exam ENT Exam: Mucous Membranes Moist - Neck Exam Neck Exam: Normal Inspection - Respiratory Exam Respiratory Exam: Clear to Ausculation Bilateral, NORMAL BREATHING PATTERN. absent: Rales, Rhonchi, Wheezes - Cardiovascular Exam Cardiovascular Exam: RRR, +S1, +S2 - GI/Abdominal Exam GI & Abdominal Exam: Soft, Normal Bowel Sounds. absent: Distended, Tenderness - Extremities Exam Extremities Exam: Normal Inspection - Back Exam Back Exam: NORMAL INSPECTION - Neurological Exam Neurological Exam: Alert, Awake, Oriented x3 - Psychiatric Exam Psychiatric exam: Normal Affect, Normal Mood - Skin Skin Exam: Normal Color, Warm Assessment and Plan - Assessment and Plan (Free Text) Assessment: 27 year old female with no significant past medical history presents with 2 week history of cough. Patient states her cough started two weeks ago and is productive with yellow sputum and associated with vomiting, sore throat and headache. Flu negative. Prelim AFB cultures negative x3; Quantiferon pending results. Plan: 1. Cough with Fever, treating for flu but need to r/o TB - Chest xray: right upper lobe nodular densities, likely granulomas, biapical pleural thickening. No focal consolidation - HRCT chest showed small calcified granulomas in right upper lobe - Continue Azithromycin to cover for CAP despite low pneumonia severity - Continue Tamiflu for 5 days - Quantiferon gold ordered to r/o TB; pending - AFB sputum cultures q8h x3 ordered; negative x3 prelim read - Tylenol prn fevers - Robitussin prn cough - Blood culture negative x4 days - Urine culture negative - Procal low; Histoplasma Ag pending - ID consulted, recs appreciated 2. History of VSD s/p repair - Patient endorses history of "hole in heart" that was repaired with a patch in childhood - Echo shows EF 60%, normal wall motion, mild pulm hypertension, possible VSD with patch, possible PFO; no vegetations - Per cardio, BHAVNA planned for tomorrow 1130 - Cardio consulted, recs appreciated 3. Hypotension, similar to old readings - Patient is at baseline; asymptomatic - Continue NS@100 - Continue to monitor - TSH wnl 4. GI/DVT - protonix for GI ppx - SCDs for DVT ppx Patient was seen, examined and discussed with attending, Dr. Val Goinsis PGY1 Pager # [phone] <Merissa Neal - Last Filed: 07/04/17 16:43> Objective - Vital Signs/Intake and Output Vital Signs (last 24 hours): Temp Pulse Resp BP Pulse Ox 98.9 F 54 L 18 91/51 L 100 07/04/17 12:00 07/04/17 12:00 07/04/17 12:00 07/04/17 12:00 07/04/17 05:42 Intake and Output: 07/04/17 07/04/17 06:59 18:59 Intake Total 375 Balance 375 - Medications Medications: Current Medications Acetaminophen (Tylenol 325mg Tab) 650 mg PO Q6H PRN PRN Reason: Fever >100.4 F Azithromycin (Zithromax) 500 mg PO DAILY [facility] PRN Reason: Protocol Last Admin: 07/04/17 10:14 Dose: 500 mg Guaifenesin (Robitussin) 100 mg PO Q4H PRN PRN Reason: Cough Last Admin: 07/04/17 10:17 Dose: 100 mg Sodium Chloride (Sodium Chloride 0.9%) 1,000 mls @ 100 mls/hr IV .Q10H [facility] Last Admin: 07/04/17 10:18 Dose: 100 mls/hr Levalbuterol HCl (Xopenex) 0.63 mg IH Q6H PRN PRN Reason: Shortness of Breath Ondansetron HCl (Zofran Inj) 4 mg IVP Q4H PRN PRN Reason: Nausea/Vomiting Oseltamivir Phosphate (Tamiflu Cap) 75 mg PO Q12 [facility] PRN Reason: Protocol Last Admin: 07/04/17 10:14 Dose: 75 mg Pantoprazole Sodium (Protonix Ec Tab) 40 mg PO 0600 [facility] Last Admin: 07/04/17 05:05 Dose: 40 mg - Labs Labs: 07/04/17 06:00 07/04/17 06:00 Attending/Attestation - Attestation I have personally seen and examined this patient.: Yes I have fully participated in the care of the patient.: Yes I have reviewed all pertinent clinical information, including history, physical exam and plan: Yes Notes (Text): 07/04/17 16:17 Attending note; Patient seen and examined with resident. Patient is a 27 year old female with history of congenital heart defect s/p repair who came for evaluation of fever, cough, phlegm production and found to have right upper lobe nodular density and bi apical pleural thickening. CT chest showed small calcified granulomas in right upper lobe. AFB 3 negative. Isolation discontinued. Patient is currently on Zithromax and Tamiflu. Quantiferon is pending. ID evaluation appreciated. Cardiology consult appreciated. Echo showed suspected vegetation. Plan for BHAVNA tomorrow. BP is on the lower side however patient denies any complaints. Upon discharge patient will follow up in [facility] clinic.
[2017-07-04] MEDS: guaiFENesin 100 mg/5 ml Syrup UD PO PRN ×2 (10:17→20:59)
--- NOTE | 2017-07-04 12:49 | CP.PCM.PN ---
Subjective - Date & Time of Evaluation Date of Evaluation: 07/04/17 Time of Evaluation: 11:40 - Subjective Subjective: Comfortable, no fevers, no cough currently. Objective - Vital Signs/Intake and Output Vital Signs (last 24 hours): Temp Pulse Resp BP Pulse Ox 98.8 F 70 20 91/57 L 100 07/04/17 05:42 07/04/17 10:00 07/04/17 05:42 07/04/17 10:00 07/04/17 05:42 Intake and Output: 07/04/17 07/04/17 06:59 18:59 Intake Total 375 Balance 375 - Medications Medications: Current Medications Acetaminophen (Tylenol 325mg Tab) 650 mg PO Q6H PRN PRN Reason: Fever >100.4 F Azithromycin (Zithromax) 500 mg PO DAILY [facility] PRN Reason: Protocol Last Admin: 07/04/17 10:14 Dose: 500 mg Guaifenesin (Robitussin) 100 mg PO Q4H PRN PRN Reason: Cough Last Admin: 07/04/17 10:17 Dose: 100 mg Sodium Chloride (Sodium Chloride 0.9%) 1,000 mls @ 100 mls/hr IV .Q10H [facility] Last Admin: 07/04/17 10:18 Dose: 100 mls/hr Levalbuterol HCl (Xopenex) 0.63 mg IH Q6H PRN PRN Reason: Shortness of Breath Ondansetron HCl (Zofran Inj) 4 mg IVP Q4H PRN PRN Reason: Nausea/Vomiting Oseltamivir Phosphate (Tamiflu Cap) 75 mg PO Q12 [facility] PRN Reason: Protocol Last Admin: 07/04/17 10:14 Dose: 75 mg Pantoprazole Sodium (Protonix Ec Tab) 40 mg PO 0600 [facility] Last Admin: 07/04/17 05:05 Dose: 40 mg - Labs Labs: 07/04/17 06:00 07/04/17 06:00 - Constitutional Appears: Non-toxic - Head Exam Head Exam: NORMAL INSPECTION - ENT Exam ENT Exam: Mucous Membranes Moist - Neck Exam Neck Exam: absent: Meningismus - Respiratory Exam Respiratory Exam: Decreased Breath Sounds - Cardiovascular Exam Cardiovascular Exam: +S1, +S2 - GI/Abdominal Exam GI & Abdominal Exam: Soft. absent: Tenderness Assessment and Plan - Assessment and Plan (Free Text) Plan: Assessment sepsis from systemic viral illness with Influenza as well as acute bronchitis nodular lesions on right upper lobe, probably calcified granuloma, R/O TB ( latent) Plan Continue Tamiflu to complete a 5 day course; continue Zithromax to complete 5 day course (day 4 today) Follow up Quantiferon TB test - calcified granuloma is characteristic of old disease, and we are looking more whether this is from TB or not - if Quantiferon test is positive, she should be placed on INH and pyridoxine for 9 months with monthly CBC, CMP will monitor clinically
--- NOTE | 2017-07-04 13:17 | PN ---
DATE: 07/04/2017 CARDIOLOGY FOLLOWUP SUBJECTIVE: The patient is comfortable without shortness of breath. She is off isolation. PHYSICAL EXAMINATION: VITAL SIGNS: Stable. NECK: Negative JVD. LUNGS: Without rales. HEART: With S1 and S2. extremities: Without edema. Laboratories are noted. IMPRESSION: 1. Sepsis. 2. History of probable atrial septal defect versus ventricular septal defect repair. 3. Abnormal EKG. 4. Weakness, which is better. Given these findings, the patient is scheduled for BHAVNA in the morning with Dr. Marin. Ventura Becker MD
[2017-07-05 06:20] LABS: TB ANTIGEN MINUS NIL 0.01 IU/mL
[2017-07-05 06:31] VITALS: TEMP 97.8
[2017-07-05 07:19] LABS: BASO # 0.02 K/mm3 (0.0-2.0); BASO % 0.3 % (0.0-3.0); EOS # 0.1 (0.0-0.7); EOS % 1.8 % (1.5-5.0); GRAN # 3.11 (1.4-6.5); HEMOGLOBIN 11.5 g/dL (12.0-16.0); LYMPH # 2.9 (1.2-3.4); MEAN CELL VOLUME 92.3 fl (80.0-105.0); MEAN CORPUSCULAR HEMOGLOBIN 29.6 pg (25.0-35.0); MEAN CORPUSCULAR HGB CONC 32.1 g/dl (31.0-37.0); MEAN PLATELET VOLUME 9.9 fl (7.0-11.0); MONO # 0.5 (0.1-0.6); MONO % 6.9 % (1.0-6.0); RBC 3.88 10^6/uL (3.5-6.1); RED CELL DISTRIBUTION WIDTH 13.4 % (11.5-14.5); WHITE BLOOD COUNT 6.6 10^3/ul (4.5-11.0)
[2017-07-05] MEDS: Pantoprazole 40 mg EC Tab PO SCH (07:43)
[2017-07-05 07:44] LABS: ALB/GLOB RATIO 1.1 (1.1-1.8); ALBUMIN 3.5 g/dL (3.0-4.8); ALT/SGPT 33 U/L (7-56); AST/SGOT 26 U/L (14-36); BLOOD UREA NITROGEN 15 mg/dL (7-21); CALCIUM 9.3 mg/dL (8.4-10.5); GFR AFRICAN-AMERICAN > 60; GFR NON-AFRICAN AMERICAN > 60
[2017-07-05] MEDS: Sodium Chloride 0.9% 1,000 ML IV SCH ×2 (09:08→09:09)
--- NOTE | 2017-07-05 12:36 | CP.PCM.PN ---
Subjective - Date & Time of Evaluation Date of Evaluation: 07/05/17 Time of Evaluation: 11:10 - Subjective Subjective: Comfortable, no fevers, feels better. Objective - Vital Signs/Intake and Output Vital Signs (last 24 hours): Temp Pulse Resp BP Pulse Ox 97.8 F 56 L 18 101/55 L 98 07/05/17 06:00 07/05/17 08:20 07/05/17 06:00 07/05/17 06:00 07/05/17 06:00 Intake and Output: 07/05/17 07/05/17 06:59 18:59 Intake Total 1200 Balance 1200 - Medications Medications: Current Medications Acetaminophen (Tylenol 325mg Tab) 650 mg PO Q6H PRN PRN Reason: Fever >100.4 F Azithromycin (Zithromax) 500 mg PO DAILY MOLLY PRN Reason: Protocol Last Admin: 07/04/17 10:14 Dose: 500 mg Guaifenesin (Robitussin) 100 mg PO Q4H PRN PRN Reason: Cough Last Admin: 07/04/17 20:59 Dose: 100 mg Sodium Chloride (Sodium Chloride 0.9%) 1,000 mls @ 100 mls/hr IV .Q10H [facility] Last Admin: 07/05/17 09:09 Dose: Not Given Levalbuterol HCl (Xopenex) 0.63 mg IH Q6H PRN PRN Reason: Shortness of Breath Ondansetron HCl (Zofran Inj) 4 mg IVP Q4H PRN PRN Reason: Nausea/Vomiting Oseltamivir Phosphate (Tamiflu Cap) 75 mg PO Q12 MOLLY PRN Reason: Protocol Last Admin: 07/04/17 20:59 Dose: 75 mg Pantoprazole Sodium (Protonix Ec Tab) 40 mg PO 0600 [facility] Last Admin: 07/05/17 07:43 Dose: Not Given - Labs Labs: 07/05/17 06:30 07/05/17 06:30 - Constitutional Appears: Non-toxic - Head Exam Head Exam: NORMAL INSPECTION - ENT Exam ENT Exam: Mucous Membranes Moist - Neck Exam Neck Exam: absent: Meningismus - Respiratory Exam Respiratory Exam: Decreased Breath Sounds - Cardiovascular Exam Cardiovascular Exam: +S1, +S2 - GI/Abdominal Exam GI & Abdominal Exam: Soft. absent: Tenderness Assessment and Plan - Assessment and Plan (Free Text) Plan: Assessment sepsis from systemic viral illness with Influenza as well as acute bronchitis nodular lesions on right upper lobe, probably calcified granuloma, Quantiferon TB test is negative Plan Continue Tamiflu to complete a 5 day course; continue Zithromax to complete 5 day course (day 5 today) discussed with Dr. Neal
[2017-07-05] MEDS ORDERED: Lidocaine 2% Inj (20ml) ONE (12:40)
[2017-07-05] MEDS ORDERED: Propofol 10 mg/ml Inj (20 ML) ONE (12:40)
[2017-07-05 13:12] VITALS: O2SAT 99
[2017-07-05] MEDS ORDERED: Sodium Chloride 0.9% 1,000 ML IV SCH (13:15)
[2017-07-05 13:36] VITALS: PULSE 45; RESP 14
[2017-07-05 13:48] VITALS: BP 91/51
--- NOTE | 2017-07-05 15:24 | CARD ---
APPROVED REPORT EXAM: Transesophageal echocardiogram with color flow Doppler. INDICATION HX OF ASD/VSD Echo Enhancing Agent Indication: Rule Out Septal Defect Agent/Amount Used: Agitated Saline Reason For Test : Rule out endocarditis. PROCEDURE After obtaining informed consent, patient underwent transesophageal echo in the Echo Lab. Type of Sedation : Conscious Sedation Sedation was provided by anesthesiologist. Sedation was achieved with intravenously. Transesophageal probe was inserted and advanced into esophagus without difficulty. Echo enhancement indication: R/O Septal defect. Echo enhancement agent administered: Agitated Saline The BHAVNA was performed without complications. Throughout the procedure, the blood pressure, pulse oximetry, cardiac rhythm, and rate were monitored. The patient tolerated the procedure without adverse effects. Recovery from conscious sedation was uneventful and vital signs were stable. LEFT VENTRICLE The left ventricle is normal size. There is normal left ventricular wall thickness. The left ventricular function is normal. The left ventricular ejection fraction is within the normal range. There is normal LV segmental wall motion. There is no ventricular septal defect visualized. RIGHT VENTRICLE The right ventricle is normal size. There is normal right ventricular wall thickness. The right ventricular systolic function is normal. ATRIA The left atrium size is normal. The right atrium size is normal. The interatrial septum is intact with no evidence for an atrial septal defect. AORTIC VALVE The aortic valve is mildly thickened. There is mild aortic regurgitation. There is no aortic valvular vegetation. TRICUSPID VALVE The tricuspid valve is normal in structure. There is no tricuspid valve regurgitation noted. GREAT VESSELS The aortic root is normal in size. PERICARDIAL EFFUSION There is no pericardial effusion. <Conclusion> The interatrial septum is intact with no evidence for an atrial septal defect. There is no ventricular septal defect visualized. There is no valvular vegetation.
--- NOTE | 2017-07-05 15:26 | CP.PCM.DIS ---
<Jorge Alberto Hsieh - Last Filed: 07/05/17 23:59> Provider - Provider Date of Admission: 07/01/17 07:06 Attending physician: Merissa Neal MD Primary care physician: NO PRIMARY CARE PROVIDER Time Spent in preparation of Discharge (in minutes): 40 Diagnosis - Discharge Diagnosis (1) Sepsis Status: Acute (2) Influenza Status: Acute (3) Acute bronchitis Status: Acute (4) Cough Status: Acute (5) Upper respiratory infection Status: Acute (6) Calcified granuloma of lung Status: Chronic Hospital Course - Lab Results Lab Results: Micro Results 07/02/17 06:00 Other: Please Indicate Mycobacterial Culture - Preliminary 07/01/17 22:32 Other: Please Indicate Mycobacterial Culture - Preliminary 07/01/17 16:30 Other: Please Indicate Mycobacterial Culture - Preliminary Most Recent Lab Values WBC 6.6 10^3/ul (4.5-11.0) 07/05/17 06:30 RBC 3.88 10^6/uL (3.5-6.1) 07/05/17 06:30 Hgb 11.5 g/dL (12.0-16.0) L 07/05/17 06:30 Hct 35.8 % (36.0-48.0) L 07/05/17 06:30 MCV 92.3 fl (80.0-105.0) 07/05/17 06:30 MCH 29.6 pg (25.0-35.0) 07/05/17 06:30 MCHC 32.1 g/dl (31.0-37.0) 07/05/17 06:30 RDW 13.4 % (11.5-14.5) 07/05/17 06:30 Plt Count 196 10^3/uL (120.0-450.0) 07/05/17 06:30 MPV 9.9 fl (7.0-11.0) 07/05/17 06:30 Gran % 47.0 % (50.0-68.0) L 07/05/17 06:30 Lymph % (Auto) 44.0 % (22.0-35.0) H 07/05/17 06:30 Knox % (Auto) 6.9 % (1.0-6.0) H 07/05/17 06:30 Eos % (Auto) 1.8 % (1.5-5.0) 07/05/17 06:30 Baso % (Auto) 0.3 % (0.0-3.0) 07/05/17 06:30 Gran # 3.11 (1.4-6.5) 07/05/17 06:30 Lymph # (Auto) 2.9 (1.2-3.4) 07/05/17 06:30 Knox # (Auto) 0.5 (0.1-0.6) 07/05/17 06:30 Eos # (Auto) 0.1 (0.0-0.7) 07/05/17 06:30 Baso # (Auto) 0.02 K/mm3 (0.0-2.0) 07/05/17 06:30 pO2 71 mm/Hg (30-55) H 06/29/17 21:50 VBG pH 7.33 (7.32-7.43) 06/29/17 21:50 VBG pCO2 41.0 (40-60) 06/29/17 21:50 VBG HCO3 21.6 mmol/l (21-28) 06/29/17 21:50 VBG Total CO2 22.9 mmol.L (22-28) 06/29/17 21:50 VBG O2 Sat (Calc) 97.0 % (40-65) H 06/29/17 21:50 VBG Base Excess -4.1 mmol/L (0.0-2.0) L 06/29/17 21:50 VBG Potassium 3.2 mmol/L (3.6-5.2) L 06/29/17 21:50 Sodium 138.0 mmol/L (132-148) 06/29/17 21:50 Chloride 114.0 mmol/L (98-107) H 06/29/17 21:50 Glucose 79 mg/dl (65-105) 06/29/17 21:50 Lactate 0.6 mmol/L (0.7-2.1) L 06/29/17 21:50 FiO2 21.0 % 06/29/17 21:50 Sodium 140 mmol/L (132-148) 07/05/17 06:30 Potassium 4.1 mmol/L (3.6-5.0) 07/05/17 06:30 Chloride 106 mmol/L (98-107) 07/05/17 06:30 Carbon Dioxide 24 mmol/L (21-33) 07/05/17 06:30 Anion Gap 14 (10-20) 07/05/17 06:30 BUN 15 mg/dL (7-21) 07/05/17 06:30 Creatinine 0.7 mg/dl (0.7-1.2) 07/05/17 06:30 Est GFR ( Amer) > 60 07/05/17 06:30 Est GFR (Non-Af Amer) > 60 07/05/17 06:30 Random Glucose 83 mg/dL (70-110) 07/05/17 06:30 Calcium 9.3 mg/dL (8.4-10.5) 07/05/17 06:30 Total Bilirubin 0.2 mg/dL (0.2-1.3) 07/05/17 06:30 AST 26 U/L (14-36) 07/05/17 06:30 ALT 33 U/L (7-56) 07/05/17 06:30 Alkaline Phosphatase 86 U/L (38-126) 07/05/17 06:30 Lactate Dehydrogenase 317 U/L (333-699) L 06/29/17 21:50 Total Creatine Kinase 81 U/L (35-230) 06/29/17 21:50 Troponin I < 0.01 ng/mL 06/30/17 12:05 Total Protein 6.7 g/dL (5.8-8.3) 07/05/17 06:30 Albumin 3.5 g/dL (3.0-4.8) 07/05/17 06:30 Globulin 3.2 gm/dL 07/05/17 06:30 Albumin/Globulin Ratio 1.1 (1.1-1.8) 07/05/17 06:30 Lipase 36 U/L (23-300) 06/29/17 21:50 Procalcitonin < 0.05 NG/ML (0.19-0.49) L 07/01/17 06:30 TSH 3rd Generation 3.83 mIU/mL (0.46-4.68) 07/01/17 06:45 Venous Blood Potassium 3.2 mmol/L (3.6-5.2) L 06/29/17 21:50 HIV 1&2 Ag/Ab, 4th Gen Nonreactive (Nonreactive) 07/03/17 08:20 Influenza Typ A,B (EIA) Negative for flu a/b (NEGATIVE) 06/29/17 17:15 TB Test (QFT) Nil 0.17 IU/mL 07/01/17 06:30 TB Test Mitogen - Nil 7.97 IU/mL 07/01/17 06:30 TB Test TB - Nil 0.01 IU/mL 07/01/17 06:30 TB Test (QFT) Negative (Negative) 07/01/17 06:30 - Hospital Course Hospital Course: Ms. 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 and child had similar symptoms and were diagnosed with the flu. Rapid flu in ER was negative, however, given hx and recent exposure to sick contacts, patient was started on 5 day course of tamiflu. patient also treated empirically for CAP with Rocephin and Zithromax. Chest xray showed right upper lobe nodular densities, likely granulomas and biapical pleural thickening. HRCT chest showed showed small calcified granulomas in right upper lobe. Patient moved from [place] and 2004, had received the BCG vaccine, but denied recent travel or contact with any recent immigrants or possible exposure. She denied chills, night sweats, weight loss, or hemoptysis. Patient was placed on isolation until TB was ruled out. ID was consulted. EKG showed T wave inversions and Cardiology was consulted given hx of cardiac septal defect as a child. Procal was low, AFB sputum cultures were negative x3 and Quantiferon test was negative. BHAVNA was done and showed intact septum with no ASD, VSD or valvular vegetations. Sepsis resolved on day 1 of admission, and patient finished 5 day course of Zithromax and Tamiflu. Of note, the patient's BP was low but relative to her BP from past ED visits, it was considered normal and patient had no complaints of weakness or dizziness. Patient's symptoms improved during her hospital stay. She is prescribed Robitussin for her cough and will follow up at [facility]. Patient medically cleared for discharge. Discharge Exam - Head Exam Head Exam: NORMAL INSPECTION - Eye Exam Eye Exam: EOMI, Normal appearance, PERRL - ENT Exam ENT Exam: Mucous Membranes Moist - Neck Exam Neck exam: Normal Inspection - Respiratory Exam Respiratory Exam: Clear to PA & Lateral, NORMAL BREATHING PATTERN. absent: Rales, Rhonchi, Wheezes Additional comments: cough - Cardiovascular Exam Cardiovascular Exam: RRR, +S1, +S2 - GI/Abdominal Exam GI & Abdominal Exam: Soft. absent: Distended, Tenderness - Extremities Exam Extremities exam: normal inspection - Back Exam Back exam: NORMAL INSPECTION - Neurological Exam Neurological exam: Alert, CN II-XII Intact, Normal Gait, Oriented x3 - Psychiatric Exam Psychiatric exam: Normal Affect, Normal Mood - Skin Skin Exam: Normal Color, Warm Discharge Plan - Discharge Medications Prescriptions: Dextromethorphan HBr [Robitussin] 15 mg PO Q4 PRN #20 capsule PRN Reason: Cough - Follow Up Plan Condition: FAIR Disposition: HOME/ ROUTINE Instructions: Upper Respiratory Infection (DC), Viral Syndrome (DC) Additional Instructions: - please follow up at [facility] clinic within 1 week. - please take the Robitussin medication prescribed, if needed. - if you experience any chills, fevers, nausea and/or vomiting, continued cough , blood with coughing, please return to Emergency Room for evaluation. Referrals: [facility] at [facility] [Outside] <Merissa Neal - Last Filed: 07/06/17 15:14> Provider - Provider Date of Admission: 07/01/17 07:06 Attending physician: Merissa Neal MD Primary care physician: NO PRIMARY CARE PROVIDER Hospital Course - Lab Results Lab Results: Micro Results 07/02/17 06:00 Other: Please Indicate Mycobacterial Culture - Preliminary 07/01/17 22:32 Other: Please Indicate Mycobacterial Culture - Preliminary 07/01/17 16:30 Other: Please Indicate Mycobacterial Culture - Preliminary Most Recent Lab Values WBC 6.6 10^3/ul (4.5-11.0) 07/05/17 06:30 RBC 3.88 10^6/uL (3.5-6.1) 07/05/17 06:30 Hgb 11.5 g/dL (12.0-16.0) L 07/05/17 06:30 Hct 35.8 % (36.0-48.0) L 07/05/17 06:30 MCV 92.3 fl (80.0-105.0) 07/05/17 06:30 MCH 29.6 pg (25.0-35.0) 07/05/17 06:30 MCHC 32.1 g/dl (31.0-37.0) 07/05/17 06:30 RDW 13.4 % (11.5-14.5) 07/05/17 06:30 Plt Count 196 10^3/uL (120.0-450.0) 07/05/17 06:30 MPV 9.9 fl (7.0-11.0) 07/05/17 06:30 Gran % 47.0 % (50.0-68.0) L 07/05/17 06:30 Lymph % (Auto) 44.0 % (22.0-35.0) H 07/05/17 06:30 Knox % (Auto) 6.9 % (1.0-6.0) H 07/05/17 06:30 Eos % (Auto) 1.8 % (1.5-5.0) 07/05/17 06:30 Baso % (Auto) 0.3 % (0.0-3.0) 07/05/17 06:30 Gran # 3.11 (1.4-6.5) 07/05/17 06:30 Lymph # (Auto) 2.9 (1.2-3.4) 07/05/17 06:30 Knox # (Auto) 0.5 (0.1-0.6) 07/05/17 06:30 Eos # (Auto) 0.1 (0.0-0.7) 07/05/17 06:30 Baso # (Auto) 0.02 K/mm3 (0.0-2.0) 07/05/17 06:30 pO2 71 mm/Hg (30-55) H 06/29/17 21:50 VBG pH 7.33 (7.32-7.43) 06/29/17 21:50 VBG pCO2 41.0 (40-60) 06/29/17 21:50 VBG HCO3 21.6 mmol/l (21-28) 06/29/17 21:50 VBG Total CO2 22.9 mmol.L (22-28) 06/29/17 21:50 VBG O2 Sat (Calc) 97.0 % (40-65) H 06/29/17 21:50 VBG Base Excess -4.1 mmol/L (0.0-2.0) L 06/29/17 21:50 VBG Potassium 3.2 mmol/L (3.6-5.2) L 06/29/17 21:50 Sodium 138.0 mmol/L (132-148) 06/29/17 21:50 Chloride 114.0 mmol/L (98-107) H 06/29/17 21:50 Glucose 79 mg/dl (65-105) 06/29/17 21:50 Lactate 0.6 mmol/L (0.7-2.1) L 06/29/17 21:50 FiO2 21.0 % 06/29/17 21:50 Sodium 140 mmol/L (132-148) 07/05/17 06:30 Potassium 4.1 mmol/L (3.6-5.0) 07/05/17 06:30 Chloride 106 mmol/L (98-107) 07/05/17 06:30 Carbon Dioxide 24 mmol/L (21-33) 07/05/17 06:30 Anion Gap 14 (10-20) 07/05/17 06:30 BUN 15 mg/dL (7-21) 07/05/17 06:30 Creatinine 0.7 mg/dl (0.7-1.2) 07/05/17 06:30 Est GFR ( Amer) > 60 07/05/17 06:30 Est GFR (Non-Af Amer) > 60 07/05/17 06:30 Random Glucose 83 mg/dL (70-110) 07/05/17 06:30 Calcium 9.3 mg/dL (8.4-10.5) 07/05/17 06:30 Total Bilirubin 0.2 mg/dL (0.2-1.3) 07/05/17 06:30 AST 26 U/L (14-36) 07/05/17 06:30 ALT 33 U/L (7-56) 07/05/17 06:30 Alkaline Phosphatase 86 U/L (38-126) 07/05/17 06:30 Lactate Dehydrogenase 317 U/L (333-699) L 01/31/18 21:50 Total Creatine Kinase 81 U/L (35-230) 06/29/17 21:50 Troponin I < 0.01 ng/mL 06/30/17 12:05 Total Protein 6.7 g/dL (5.8-8.3) 07/05/17 06:30 Albumin 3.5 g/dL (3.0-4.8) 07/05/17 06:30 Globulin 3.2 gm/dL 07/05/17 06:30 Albumin/Globulin Ratio 1.1 (1.1-1.8) 07/05/17 06:30 Lipase 36 U/L (23-300) 06/29/17 21:50 Procalcitonin < 0.05 NG/ML (0.19-0.49) L 07/01/17 06:30 TSH 3rd Generation 3.83 mIU/mL (0.46-4.68) 07/01/17 06:45 Venous Blood Potassium 3.2 mmol/L (3.6-5.2) L 06/29/17 21:50 HIV 1&2 Ag/Ab, 4th Gen Nonreactive (Nonreactive) 07/03/17 08:20 Influenza Typ A,B (EIA) Negative for flu a/b (NEGATIVE) 06/29/17 17:15 TB Test (QFT) Nil 0.17 IU/mL 07/01/17 06:30 TB Test Mitogen - Nil 7.97 IU/mL 07/01/17 06:30 TB Test TB - Nil 0.01 IU/mL 07/01/17 06:30 TB Test (QFT) Negative (Negative) 07/01/17 06:30 Attending/Attestation - Attestation I have personally seen and examined this patient.: Yes I have fully participated in the care of the patient.: Yes I have reviewed all pertinent clinical information, including history, physical exam and plan: Yes Notes (Text): 07/06/17 15:12 Attending note; Patient seen and examined with resident. Patient is a 27 year old female with history of congenital heart defect s/p repair who came for evaluation of fever, cough, phlegm production and found to have right upper lobe nodular density and bi apical pleural thickening. CT chest showed small calcified granulomas in right upper lobe. AFB 3 negative. Isolation discontinued. Treated with Zithromax and Tamiflu. Quantiferon is is negative. ID evaluation appreciated. Cardiology consult appreciated. Echo showed suspected vegetation. BHAVNA is negative for any vegetation. BP is on the lower side however patient denies any complaints. Patient will be discharged home. Upon discharge patient will follow up in [facility] clinic. Follow-up with cardiology of choice.
--- NOTE | 2017-07-05 18:01 | PN ---
CARDIOLOGY FOLLOWUP DATE OF FOLLOWUP: 07/05/2017 SUBJECTIVE: The patient is without symptoms. OBJECTIVE: VITAL SIGNS: The patient is afebrile, blood pressure is 101/55, the heart rate is in the 50 to 56. NECK: Negative JVD. LUNGS: Without rales. HEART: With S1 and S2. EXTREMITIES: Without edema. LABORATORY DATA: Hemoglobin is 11.5. White count is normal. BUN and creatinine are unremarkable. IMPRESSION: 1. Status post cardiac surgery as a child. 2. Abnormal EKG. 3. Sepsis which is resolved. 4. Weakness which is better. PLAN: Given these findings, the patient is in for BHAVNA today. Ventura Becker MD
== END 2017-07-05 15:32 | disposition home or self-care (01) | DRG 872 ==
LOC: ED 13:57 → ERH 23:04 → 3RSO 06-30 22:08 → OBSVTOIN 07-01 07:06
PROVIDERS: ADMIT Hospitalist; ATTEND Internal Medicine
PROC: B246ZZ4 Ultrasonography of Right and Left Heart, Transesophageal (ICD-10-PCS; principal; 2017-07-05 11:30)
DX: A41.9 Sepsis, unspecified organism (principal); J11.1 Influenza due to unidentified influenza virus with other respiratory manifestations; J20.9 Acute bronchitis, unspecified; J84.10 Pulmonary fibrosis, unspecified; E86.0 Dehydration; D64.9 Anemia, unspecified; R19.7 Diarrhea, unspecified